=== PATIENT | female | born 1935 | race Caucasian/White ===

== ENCOUNTER 2018-08-31 14:42 | Emergency (ER) | payer OTHER, BC ==
[2018-08-31 14:55] VITALS: TEMP 98.4; BMI 24.9
[2018-08-31] MEDS ORDERED: ACETAMINOPHEN 500 MG TABLET (FP) ONE (15:24)
[2018-08-31] MEDS ORDERED: ACETAMINOPHEN 325 MG TABLET (FP) PO ONE (15:40)
--- NOTE | 2018-08-31 17:10 | PDOC ---
Documentation entered by Joshua Natarajan SCRIBE, acting as scribe for Og Kennedy MD. gO Kennedy MD: This documentation has been prepared by the Delgado johnson Daniel, SCRIBE, under my direction and personally reviewed by me in its entirety. I confirm that the documentation accurately reflects all work, treatment, procedures, and medical decision making performed by me. History of Present Illness - General Chief Complaint: Headache Stated Complaint: HEADACHE History Source: Patient, Family Exam Limitations: No Limitations - History of Present Illness Initial Comments: 08/31/18 17:06 The patient is an 83 year old female with a past medical history of HTN, HLD, COPD, gastric ulcers, suspected colon cancer, and left upper lobe lobectomy here today for evaluation of headache. The patient reports that she has been having an intermittent headache for a couple of weeks. She reports that her headache today started around 8 AM describing it as a pressure on top of her head and a 7/10 in severity. Patients daughter also notes her having mild dizziness. Patient denies vision changes. endorses mild nausea with her shelley Patient denies fever, chills. Denies chest pain, shortness of breath. Denies vomiting, diarrhea, abdominal pain, numbness/tingling/weakness, neck pain. Allergies: sulfa PCP: Bud Angelo Past History - Past Medical History Allergies/Adverse Reactions: Allergies Allergy/AdvReac Type Severity Reaction Status Date / Time Sulfa (Sulfonamide Allergy Verified 08/05/11 23:54 Antibiotics) [Sulfa(Sulfonamide Antibiotics)] Home Medications: Ambulatory Orders Amlodipine Besylate [Norvasc] 2.5 mg PO DAILY 12/17/11 Cholecalciferol (Vitamin D3) [Vitamin D3] 1,000 unit PO DAILY tablet 10/01/14 Aspirin [Aspirin Ec] 81 mg PO ASDIR 03/10/16 C,E,Zinc,Copper 24/Om3/Lut/Rosalio [Ocuvite Softgel] 1 each PO DAILY 11/16/17 Metoprolol Tartrate 50 mg PO HS 11/16/17 Anemia: No Asthma: No Cancer: No Cardiac Disorders: No (HAS HAD RECENT ECHO AND STRESS---NORMAL) CVA: No COPD: Yes (MILD) CHF: No Dementia: No Diabetes: No GI Disorders: Yes (GERD,BLEEDING GASTRIC ULCER OVER 15 YRS AGO) Disorders: No HTN: Yes Hypercholesterolemia: Yes Liver Disease: No Seizures: No Thyroid Disease: No - Surgical History Abdominal Surgery: No Appendectomy: No Cardiac Surgery: No Cholecystectomy: No Lung Surgery: No Neurologic Surgery: No Orthopedic Surgery: No - Immunization History Td Vaccination: No Immunization Up to Date: (UNKNOWN) - Suicide/Smoking/Psychosocial Hx Smoking Status: No Smoking History: Former smoker Have you smoked in the past 12 months: No Number of Cigarettes Smoked Daily: 20 If you are a former smoker, when did you quit?: 2004 Hx Alcohol Use: Yes (RARELY) Drug/Substance Use Hx: No Substance Use Type: Alcohol Hx Substance Use Treatment: No Review of Systems - Review of Systems Able to Perform ROS?: Yes Comments:: 08/31/18 17:06 CONSTITUTIONAL: No reported: Fever, Chills, Diaphoresis, Generalized Weakness, Malaise, Loss of Appetite HEENT: No reported: Rhinorrhea, Nasal Congestion, Throat Pain, Throat Swelling, Difficulty Swallowing, Mouth Swelling, Ear Pain, Eye Pain, Visual Changes CARDIOVASCULAR: No reported: Chest Pain, Syncope, Palpitations, Irregular Heart Rate, Lightheadedness, Peripheral Edema RESPIRATORY: No reported: Cough, Shortness of Breath, SOB with Exertion, Orthopnea, Wheezing , Stridor, Hemoptysis GASTROINTESTINAL: No reported: Abdominal pain, Abdominal Distension, Nausea, Vomiting, Diarrhea, Constipation, Melena, Hematochezia GENITOURINARY: No reported: Dysuria, Frequency, Urgency, Hesitancy, Flank Pain, Genital Pain MUSCULOSKELETAL: No reported: Myalgia, Arthralgia, Joint Swelling, Back pain, Neck Pain SKIN: No reported: Rash, Itching, Pallor HEMEATOLOGIC/IMMUNOLOGIC: No reported: Easy Bleeding, Easy Bruising, Lymphadenopathy, Frequent infections ENDOCRINE: No reported: Unexplained Weight Gain, Unexplained Weight Loss, Heat Intolerance , Cold Intolerance NEUROLOGIC: +headache No reported: Focal Weakness, Paresthesias, Vertigo, Lightheadedness, Unsteady Gait, Seizure, Mental Status Changes, Incontinence PSYCHIATRIC: No reported: Anxiety, Depression *Physical Exam - Vital Signs Last Vital Signs Temp Pulse Resp BP Pulse Ox 98.4 F 78 18 180/97 H 97 08/31/18 14:42 08/31/18 14:42 08/31/18 14:42 08/31/18 14:42 08/31/18 14:42 - Physical Exam Comments: 08/31/18 17:09 GENERAL: The patient is awake, alert, and fully oriented, Nontoxic - in no acute distress. HEAD: Normocephalic, atraumatic. EYES: extraocular movements intact, sclera anicteric, conjunctiva clear. ENT: Normal voice, Moist mucous membranes. NECK: Normal range of motion, supple LUNGS: Breath sounds equal, clear to auscultation bilaterally. No wheezes, no rhonchi, no rales. HEART: Regular rate and rhythm, normal S1 and S2 without murmur, rub or gallop. ABDOMEN: Soft, nontender, No guarding, no rebound. . No CVA tenderness EXTREMITIES: Normal range of motion, no edema. NEUROLOGICAL: No facial assymetry, Normal speech PSYCH: Normal mood, normal affect. SKIN: Warm, Dry, normal turgor, NEURO: Mental status: The patient is oriented x3. Cranial nerves: Cranial nerves II through XII are intact Motor: The upper extremities are 5 over 5 in all muscle groups. The lower extremities are 5 over 5 in all muscle groups. Negative pronator drift Sensation: Sensation is intact to light touch throughout Gait: Normal. Heel and toe walking are normal. Tandem gait is normal. ED Treatment Course - RADIOLOGY Radiology Studies Ordered: Category Date Time Status HEAD CT WITHOUT CONTRAST [CT] Stat CT Scan 08/31/18 15:19 Completed - Medications Given in the ED: ED Medications Discontinued Medications Generic Name Dose Route Start Last Admin Trade Name Freq PRN Reason Stop Dose Admin Acetaminophen 975 mg 08/31/18 15:40 08/31/18 15:30 Tylenol - PO 08/31/18 15:41 975 mg ONCE ONE Administration Medical Decision Making - Medical Decision Making 08/31/18 17:01 83y F hx of htn, hl, copd, suspect colon ca (currently being worked up) presents with complaint o fheadache this mroning that was pressure like associated with nausa, pt endorses recent increase episode of headaches. denies any fever/chills, neck pain, cough, numbness/tingling/weakness, vision changes. on exam pt in [place], well apeparing ct obtained due to increased headaches and colon ca to r/o metastatic ca/mass ct negative pt feelng improved will dc pt with outpatient fu return precautions were discussed I discussed the physical exam findings, ancillary test results and final diagnoses with the patient. I answered all of the patient's questions. The patient was satisfied with the care received and felt comfortable with the discharge plan and treatment plan. The patient will call their primary care physician within 24 hours to arrange follow-up and will return to the Emergency Department with any new, persistent or worsening symptoms. *DC/Admit/Observation/Transfer Diagnosis at time of Disposition: Headache Qualifiers: Headache type: tension-type Headache chronicity pattern: acute headache Intractability: not intractable Qualified Code(s): G44.209 - Tension-type headache, unspecified, not intractable - Discharge Dispostion Disposition: HOME Condition at time of disposition: Improved Decision to Admit order: No - Referrals Referrals: Bud Angelo MD [Primary Care Provider] - - Patient Instructions Printed Discharge Instructions: DI for Hormonal and Tension Headaches Additional Instructions: Return to the emergency department immediately with ANY new, persistent or worsening symptoms including worsening headache, vision changes, numbness/ tingling/weakness, persistent nausea and vomiting or any other concerns. Make sure you are getting adaqute sleep and hydration. You MUST call and follow up with your doctor tomorrow for further evaluation of your symptoms. Your emergency department visit is not complete without a followup with your doctor for reevaluation. Results were discussed with you. Please make sure your doctor reviews the results of your emergency evaluation. Print Language: KAZAKH - Post Discharge Activity
[2018-08-31 17:36] VITALS: BP 170/90; PULSE 77
== END 2018-08-31 17:30 | disposition home or self-care (01) ==
LOC: FER 14:42
DX: G44.209 Tension-type headache, unspecified, not intractable (principal); I10 Essential (primary) hypertension; E78.5 Hyperlipidemia, unspecified; J44.9 Chronic obstructive pulmonary disease, unspecified
CPT/HCPCS: 70450-TC; 99282-25

== ENCOUNTER 2018-12-11 15:21 | Emergency (ER) | payer OTHER, BC ==
--- NOTE | 2018-12-11 15:23 | PDOC ---
History of Present Illness - General Chief Complaint: Pain Stated Complaint: ABDOMINAL PAIN History Source: Patient Exam Limitations: No Limitations - History of Present Illness Initial Comments: 12/11/18 19:40 83 yo F with a hx of lung cancer (s/p upper lobe resection with metastasis to the left colon), left colon cancer (s/p resection), and right colonic poly removal with subsequent perforation treated medically presents to the emergency department with pain in the right lower quadrant that has been ongoing for 1 week. Per the patient, she was discharged 6 weeks ago and has had follow up with her PMD. PMD ordered plain xray films which did not show evidence of obstruction. Patient states she has a known right ovarian cyst. States last BM was "at least 5 days ago" with a loose watery stool episode this past sunday. In addition to the KUB, her WBC showed 14,000. Past History - Past Medical History Allergies/Adverse Reactions: Allergies Allergy/AdvReac Type Severity Reaction Status Date / Time Sulfa (Sulfonamide Allergy Verified 12/11/18 15:28 Antibiotics) [Sulfa(Sulfonamide Antibiotics)] Home Medications: Ambulatory Orders Amlodipine Besylate [Norvasc] 2.5 mg PO DAILY 12/17/11 Cholecalciferol (Vitamin D3) [Vitamin D3] 1,000 unit PO DAILY tablet 10/01/14 Aspirin [Aspirin Ec] 81 mg PO MOFR 03/10/16 C,E,Zinc,Copper 24/Om3/Lut/Rosalio [Ocuvite Softgel] 1 each PO DAILY 11/16/17 Metoprolol Tartrate 50 mg PO HS 11/16/17 Amox-Tr/K Cl [Augmentin - 500Mg Tablet] 1 tab PO BID #14 tab 12/11/18 Docusate Sodium [Colace] 200 mg PO HS 12/11/18 Omeprazole 40 mg PO DAILY 12/11/18 Polyethylene Glycol 3350 [Miralax (For Daily Use) -] 17 gm PO DAILY 12/11/18 Ramipril 5 mg PO DAILY 12/11/18 Simvastatin [Zocor -] 40 mg PO HS 12/11/18 Anemia: No Asthma: No Cancer: No Cardiac Disorders: No (HAS HAD RECENT ECHO AND STRESS---NORMAL) CVA: No COPD: Yes (MILD) CHF: No Dementia: No Diabetes: No GI Disorders: Yes (GERD,BLEEDING GASTRIC ULCER OVER 15 YRS AGO) Disorders: No HTN: Yes Hypercholesterolemia: Yes Liver Disease: No Seizures: No Thyroid Disease: No - Surgical History Abdominal Surgery: No Appendectomy: No Cardiac Surgery: No Cholecystectomy: No Lung Surgery: No Neurologic Surgery: No Orthopedic Surgery: No - Immunization History Td Vaccination: No Immunization Up to Date: (UNKNOWN) - Suicide/Smoking/Psychosocial Hx Smoking Status: No Smoking History: Former smoker Have you smoked in the past 12 months: No Number of Cigarettes Smoked Daily: 20 If you are a former smoker, when did you quit?: 2005 Hx Alcohol Use: Yes (RARELY) Drug/Substance Use Hx: No Substance Use Type: Alcohol Hx Substance Use Treatment: No Review of Systems - Review of Systems Able to Perform ROS?: Yes Is the patient limited Armenian proficient: No Constitutional: No: Chills, Diaphoresis, Fever, Weakness HEENTM: No: Ear Pain, Nose Pain, Throat Pain, Mouth Pain Respiratory: No: Cough, Shortness of Breath, Hemoptysis Cardiac (ROS): No: Chest Pain, Lightheadedness, Palpitations, Syncope ABD/GI: Yes: Constipated, Abdominal cramping. No: Diarrhea, Nausea, Rectal Bleeding, Vomiting, Tarry Stools : No: Burning, Dysuria, Hematuria Musculoskeletal: No: Back Pain, Joint Pain, Neck Pain Integumentary: No: Bruising, Erythema, Rash Neurological: No: Headache, Numbness Psychiatric: No: Change in Appetite Endocrine: No: Unexplained Weight Gain Hematologic/Lymphatic: No: Anemia *Physical Exam - Physical Exam General Appearance: Yes: Nourished, Appropriately Dressed. No: Apparent Distress, Intoxicated HEENT: positive: EOMI, YANELIS, Normal Voice, Symmetrical, Pharynx Normal. negative: Pale Conjunctivae, Scleral Icterus (R), Scleral Icterus (L), Muffled/ Hoarse voice, Pharyngeal Erythema, Tonsillar Exudate, Tonsillar Erythema Neck: positive: Trachea midline, Supple. negative: Tender, Lymphadenopathy (R) , Lymphadenopathy (L), Tender lateral, Tender midline Respiratory/Chest: positive: Lungs Clear, Normal Breath Sounds. negative: Chest Tender, Respiratory Distress, Accessory Muscle Use Cardiovascular: positive: Regular Rhythm, Regular Rate, S1, S2. negative: Systolic Murmur Gastrointestinal/Abdominal: positive: Normal Bowel Sounds, Tender (RLQ), Soft, Distended. negative: Guarding, Rebound Musculoskeletal: positive: Normal Inspection. negative: CVA Tenderness, Vertebral Tenderness Extremity: positive: Normal Capillary Refill, Normal Inspection, Normal Range of Motion. negative: Tender, Swelling, Calf Tenderness Integumentary: positive: Normal Color, Dry, Warm. negative: Swelling, Ecchymosis Neurologic: positive: locum tenens psychiatrist II-XII NML intact, Fully Oriented, Alert, Normal Mood/ Affect ED Treatment Course - LABORATORY CBC & Chemistry Diagram: 12/11/18 16:30 12/11/18 16:30 Medical Decision Making - Medical Decision Making 83 yo F with a hx of lung cancer (s/p upper lobe resection with metastasis to the left colon), left colon cancer (s/p resection), and right colonic poly removal with subsequent perforation treated medically presents to the emergency department with pain in the right lower quadrant that has been ongoing for 1 week. Initial vitals: Initial Vital Signs Temp Pulse Resp BP Pulse Ox 98.3 F 81 18 145/68 99 12/11/18 15:21 12/11/18 15:21 12/11/18 15:21 12/11/18 15:21 12/11/18 15:21 work up:" ddx: colitis vs SBO vs LBO vs UTI vs nephrolithiasis vs ovarian pathology (has hx of large right ovarian cyst). Laboratory Tests 12/11/18 12/11/18 12/11/18 16:30 16:30 16:30 WBC 13.5 H RBC 3.26 L Hgb 10.6 L Hct 31.6 L MCV 96.9 H MCH 32.6 MCHC 33.6 RDW 12.6 Plt Count 418 MPV 7.7 Absolute Neuts (auto) 11.6 Neutrophils % 85.6 H Lymphocytes % 7.1 L Monocytes % 6.8 Eosinophils % 0.2 Basophils % 0.3 Sodium 131 L Potassium 4.1 Chloride 97 L Carbon Dioxide 24 Anion Gap 10 BUN 19.0 H Creatinine 0.9 Est GFR (CKD-EPI)AfAm 68.53 Est GFR (CKD-EPI)NonAf 59.13 Random Glucose 108 H Lactic Acid 1.6 Calcium 9.2 Total Bilirubin 0.7 AST 14 L ALT 9 L Alkaline Phosphatase 87 Troponin I Total Protein 7.1 Albumin 3.5 Urine Color Urine Appearance Urine pH Urine Protein Urine Glucose (UA) Urine Ketones Urine Blood Urine Nitrite Urine Bilirubin Urine Urobilinogen Ur Leukocyte Esterase Urine RBC Urine WBC Ur Transition Epith Cell Urine Bacteria 12/11/18 12/11/18 16:49 18:40 WBC RBC Hgb Hct MCV MCH MCHC RDW Plt Count MPV Absolute Neuts (auto) Neutrophils % Lymphocytes % Monocytes % Eosinophils % Basophils % Sodium Potassium Chloride Carbon Dioxide Anion Gap BUN Creatinine Est GFR (CKD-EPI)AfAm Est GFR (CKD-EPI)NonAf Random Glucose Lactic Acid Calcium Total Bilirubin AST ALT Alkaline Phosphatase Troponin I < 0.03 Total Protein Albumin Urine Color Yellow Urine Appearance Clear Urine pH 5.5 Urine Protein Negative Urine Glucose (UA) Negative Urine Ketones Negative Urine Blood Trace-intact Urine Nitrite Positive H Urine Bilirubin Negative Urine Urobilinogen 0.2 Ur Leukocyte Esterase Trace H Urine RBC 10-20 Urine WBC 20-40 Ur Transition Epith Cell Few Urine Bacteria Many leukocytosis noted. UTI noted on UA Patient's CT abdomen and pelvis reveals large right ovarian cyst measuring 19x20 cm. A pending US at the time of sign out to night team to rule out ovarian torsion. *DC/Admit/Observation/Transfer Diagnosis at time of Disposition: Lower abdominal pain UTI (urinary tract infection) Qualifiers: Urinary tract infection type: site unspecified Hematuria presence: without hematuria Qualified Code(s): N39.0 - Urinary tract infection, site not specified - Discharge Dispostion Disposition: HOME Condition at time of disposition: Stable - Prescriptions Prescriptions: Amox-Tr/K Cl [Augmentin - 500Mg Tablet] 1 tab PO BID #14 tab - Referrals Referrals: Bud Angelo MD [Primary Care Provider] - - Patient Instructions Printed Discharge Instructions: DI for Abdominal Pain-Adult Additional Instructions: Augmentin 500/125 mg twice a day for 1 week(take with a meal) drink plenty of water followup with Dr Angelo and your surgeon at [facility] as discussed return to ER if you have worsening pain/fever/vomiting - Post Discharge Activity
[2018-12-11 15:47] VITALS: BMI 25.1
[2018-12-11] MEDS ORDERED: ACETAMINOPHEN 1000 MG/100 ML VIAL (NON FORMULARY) IVPB ONE (16:06)
[2018-12-11] MEDS ORDERED: ACETAMINOPHEN INJECTION 100 ML IVPB ONE (16:29)
--- NOTE | 2018-12-11 16:40 | PDOC ---
Attending Attestation - Resident Resident Name: RiverRayray - ED Attending Attestation I have performed the following: I have examined & evaluated the patient, The case was reviewed & discussed with the resident, I agree w/resident's findings & plan, Exceptions are as noted - HPI HPI: 12/11/18 16:31 83-year-old female with extensive medical history including left upper lobe lung resection for carcinoma, left colon resection for carcinoma, and right colonic polyp removal, one of which was cancerous, subsequently followed by perforation and extended hospitalization however, she was treated medically and it resolved without surgery. She was discharged following the perforation approximately 6 weeks ago and has been doing well until right mid and lower abdominal pain developed several days ago. She had a 14,000 white count last Sunday, and a KUB film which failed to show obstruction - Physicial Exam PE: 12/11/18 16:33 Physical exam reveals that the patient is afebrile with otherwise normal vital signs. She does not appear to be significantly dehydrated Abdomen is mildly to moderately distended. However, she is known to have a very large ovarian cyst that is untreated. There is moderate localized tenderness in the right lower quadrant and right pelvic region to deep palpation but without guarding or rebound. There is also mild diffuse tenderness throughout the abdomen. 12/14/18 07:14 - Medical Decision Making 12/14/18 07:14 Assessment: Possible complication related to recent surgery, including abscess, recurrent perforation. Also possible is acute diverticulitis, renal colic Plan: Labs, CT, further medical evaluation and treatment depending on results. Patient is now moderately comfortable, nontoxic in appearance. Signed out to Dr. Spence at 7 PM pending lab results and further evaluation.
[2018-12-11 16:51] LABS: BASO % 0.3 % (0-2.0); EOS % 0.2 % (0-4.5); HEMATOCRIT 31.6 % (32.4-45.2); HEMOGLOBIN 10.6 GM/dl (10.7-15.3); LYMPH % 7.1 % (8-40); MCH 32.6 pg (25.7-33.7); MCHC 33.6 g/dl (32.0-36.0); MEAN CELL VOLUME 96.9 fl (80-96); MEAN PLT VOLUME 7.7 fl (7.5-11.1); MONO % 6.8 % (3.8-10.2); NEUT % 85.6 % (42.8-82.8); PLATELET COUNT 418 K/MM3 (134-434); RBC 3.26 M/mm3 (3.60-5.2); RDW 12.6 % (11.6-15.6); WHITE BLOOD COUNT 13.5 K/mm3 (4.0-10.8)
[2018-12-11 16:59] LABS: ALBUMIN 3.5 g/dl (3.4-5.0); BILIRUBIN,TOTAL 0.7 mg/dl (0.2-1); CALCIUM 9.2 mg/dl (8.5-10); CREATININE 0.9 mg/dl (0.55-1.3); POTASSIUM 4.1 mmol/L (3.5-5.1); TOT PROT 7.1 g/dl (6.4-8.2)
[2018-12-11 17:09] VITALS: BP 145/70; PULSE 68; TEMP 98
[2018-12-11 19:10] LABS: EPITHELIAL CELLS FEW /hpf
--- NOTE | 2018-12-11 21:39 | PDOC ---
*Physical Exam - Vital Signs Last Vital Signs Temp Pulse Resp BP Pulse Ox 98.0 F 68 18 145/70 98 12/11/18 17:00 12/11/18 17:00 12/11/18 17:00 12/11/18 17:00 12/11/18 17:00 ED Treatment Course - LABORATORY CBC & Chemistry Diagram: 12/11/18 16:30 12/11/18 16:30 - ADDITIONAL ORDERS Additional order review: Laboratory Results 12/11/18 12/11/18 12/11/18 18:40 16:49 16:30 Sodium Potassium Chloride Carbon Dioxide Anion Gap BUN Creatinine Est GFR (CKD-EPI)AfAm Est GFR (CKD-EPI)NonAf Random Glucose Lactic Acid 1.6 Calcium Total Bilirubin AST ALT Alkaline Phosphatase Troponin I < 0.03 Total Protein Albumin Urine Color Yellow Urine Appearance Clear Urine pH 5.5 Urine Protein Negative Urine Glucose (UA) Negative Urine Ketones Negative Urine Blood Trace-intact Urine Nitrite Positive H Urine Bilirubin Negative Urine Urobilinogen 0.2 Ur Leukocyte Esterase Trace H Urine RBC 10-20 Urine WBC 20-40 Ur Transition Epith Cell Few Urine Bacteria Many 12/11/18 16:30 Sodium 131 L Potassium 4.1 Chloride 97 L Carbon Dioxide 24 Anion Gap 10 BUN 19.0 H Creatinine 0.9 Est GFR (CKD-EPI)AfAm 68.53 Est GFR (CKD-EPI)NonAf 59.13 Random Glucose 108 H Lactic Acid Calcium 9.2 Total Bilirubin 0.7 AST 14 L ALT 9 L Alkaline Phosphatase 87 Troponin I Total Protein 7.1 Albumin 3.5 Urine Color Urine Appearance Urine pH Urine Protein Urine Glucose (UA) Urine Ketones Urine Blood Urine Nitrite Urine Bilirubin Urine Urobilinogen Ur Leukocyte Esterase Urine RBC Urine WBC Ur Transition Epith Cell Urine Bacteria 12/11/18 16:30 RBC 3.26 L MCV 96.9 H MCHC 33.6 RDW 12.6 MPV 7.7 Neutrophils % 85.6 H Lymphocytes % 7.1 L Monocytes % 6.8 Eosinophils % 0.2 Basophils % 0.3 - RADIOLOGY Radiology Studies Ordered: Category Date Time Status PELVIS(OTHER) US [US] Stat Ultrasound 12/11/18 20:34 Completed - Medications Given in the ED: ED Medications Discontinued Medications Generic Name Dose Route Start Last Admin Trade Name Freq PRN Reason Stop Dose Admin Acetaminophen 1,000 mg 12/11/18 16:06 12/11/18 16:32 Ofirmev Injection - IVPB 12/11/18 16:07 1,000 mg ONCE ONE Administration Progress Note - Progress Note Progress Note: Care of this patient received from Dr. Levine. Abdominal/pelvic CT performed (oral and IV contrast): No evidence of acute pathology seen (per interpretation by Dr. Banegas of radiology staff) with no evidence of small bowel obstruction/perforation/abscess. Very large right ovarian cyst 21cm X 19 cm identified. No evidence of other abdominal or pelvic masses. the results of the CT discussed with the patient and her daughter; the very large right ovarian cyst has been present for many years and has been relatively asymptomatic. Since right lower quadrant and right flank pain has been present only recently, acute process involving ovarian such as torsion needed to be ruled out: pelvic US performed. Blood flow seen in both ovaries and torsion ruled out. Urinalysis is highly suggestive of urinary tract infection with positive nitrite /positive LE, red blood cells, white blood cells and many bacteria. Patient states that she has had some urinary tract infections in the past and in fact, her right lower quadrant/right flank pain can sometimes be triggered when she urinates. Empiric treatment of presumed UTI will be started . Urine culture pending. Patient has ALLERGY to sulfa. No other ALLERGIES but has tolerated azithromycin and Augmentin well in the past. The patient was started on Augmentin 500 mg twice a day to be taken with food, pending results of the culture and sensitivity . Patient should return to the ER if she has worsening pain, fever, vomiting. She should follow-up with Dr. Angelo and with her surgeon at [facility]. *DC/Admit/Observation/Transfer Diagnosis at time of Disposition: Lower abdominal pain UTI (urinary tract infection) Qualifiers: Urinary tract infection type: site unspecified Hematuria presence: without hematuria Qualified Code(s): N39.0 - Urinary tract infection, site not specified - Discharge Dispostion Disposition: HOME Condition at time of disposition: Stable - Prescriptions Prescriptions: Amox-Tr/K Cl [Augmentin - 500Mg Tablet] 1 tab PO BID #14 tab - Referrals Referrals: Bud Angelo MD [Primary Care Provider] - - Patient Instructions Printed Discharge Instructions: DI for Abdominal Pain-Adult Additional Instructions: Augmentin 500/125 mg twice a day for 1 week(take with a meal) drink plenty of water followup with Dr Angelo and your surgeon at [facility] as discussed return to ER if you have worsening pain/fever/vomiting - Post Discharge Activity
[2018-12-11] MEDS ORDERED: AMOX TR/POT CLAV 500MG/125MG TABLETS (FP) PO ONE (21:53)
[2018-12-11] MEDS ORDERED: AMOX TR/POT CLAV 500MG/125MG TABLETS (FP) ONE (22:08)
--- NOTE | 2018-12-12 09:18 | PDOC ---
Patient Follow-up (Call Back) - Post ED Follow - Up Condition at time of discharge: Stable Disposition at time of original discharge: HOME - Disposition Additional Instructions/Notes: Pt seen yesterday in ED for R sided abdominal pain, had CT imaging which showed [id number] R sided ovarian cyst, pelvic US with no torsion. 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 Widest AP diameter measures 5cm. The length of the aneurysm is approximately 3.2 cm. Thrombus is identified within the aneurysm." I called Trung to speak with her about the addended findings and recommended she take her mom to the nearest ED immediately for further evaluation, including CTA and emergent vascular surgery evaluation. She reports her mom has had multiple procedures at [facility] and will take her there (they live in [place]). I made myself available to Trung should she have any further questions.
--- NOTE | 2018-12-12 14:09 | EKG ---
Test Reason : Blood Pressure : / mmHG Vent. Rate : 078 BPM Atrial Rate : 078 BPM P-R Int : 158 ms QRS Dur : 078 ms QT Int : 418 ms P-R-T Axes : 045 -17 -05 degrees QTc Int : 476 ms SINUS RHYTHM WITH FREQUENT PREMATURE VENTRICULAR COMPLEXES POSSIBLE ANTERIOR INFARCT , AGE UNDETERMINED T WAVE ABNORMALITY, CONSIDER LATERAL ISCHEMIA ABNORMAL ECG NO PREVIOUS ECGS AVAILABLE Confirmed by CHUCK FLEMING MD ([id number]) on 12/12/2018 2:09:36 PM Referred By: MD PETERSEN Confirmed By:CHUCK FLEMING MD
== END 2018-12-11 22:12 | disposition home or self-care (01) ==
LOC: FER 15:21
PROC: 3E033NZ Introduction of Analgesics, Hypnotics, Sedatives into Peripheral Vein, Percutaneous Approach (ICD-10-PCS; principal; 2018-12-11)
DX: N39.0 Urinary tract infection, site not specified (principal); R10.30 Lower abdominal pain, unspecified; I10 Essential (primary) hypertension; E78.00 Pure hypercholesterolemia, unspecified; K21.9 Gastro-esophageal reflux disease without esophagitis; Z85.038 Personal history of other malignant neoplasm of large intestine; Z85.118 Personal history of other malignant neoplasm of bronchus and lung; Z88.2 Allergy status to sulfonamides; Z79.82 Long term (current) use of aspirin; Z87.891 Personal history of nicotine dependence
CPT/HCPCS: 36415; 74177-TC; 76856-TC; 80053; 81003; 81015; 83605; 84484; 85025; 87086; 93005; 96374; 99284-25; J0131

== ENCOUNTER 2019-03-03 11:47 | Inpatient (IN) | payer OTHER, BC ==
[2019-03-03] MEDS ORDERED: SODIUM CHLORIDE 0.9% 1000 ML INFUS.BAG IV ONE ×2 (12:09→18:19)
--- NOTE | 2019-03-03 12:10 | PDOC ---
History of Present Illness - General Chief Complaint: Pain Stated Complaint: ABD PAIN Time Seen by Provider: 03/03/19 11:50 - History of Present Illness Initial Comments: 03/03/19 12:11 84yo female with hx of lung cancer (s/p upper lobe resection with metastasis to the left colon), left colon cancer (s/p resection), and right colonic poly removal with subsequent perforation treated medically, HTN, COPD with R flank pain. States pain started last sunday. Per the daughter, the patient had chills on sunday night and on was started on Macrobid for a UTI. Since the pain has gotten worse. Last BM was Sunday - used a suppository last night with minimal output and minimal flatus. No nausea or vomiting. No cp/sob. No distension of the abd. Pt denies f/c today. Pt denies cough. No dysuria or hematuria. Pt denies back pain. States decreased PO intake over the weekend- but did tolerate PO, no vomiting. Past History - Past Medical History Allergies/Adverse Reactions: Allergies Allergy/AdvReac Type Severity Reaction Status Date / Time Sulfa (Sulfonamide Allergy Verified 03/03/19 11:47 Antibiotics) [Sulfa(Sulfonamide Antibiotics)] Home Medications: Ambulatory Orders Amlodipine Besylate [Norvasc] 2.5 mg PO DAILY 12/17/11 Cholecalciferol (Vitamin D3) [Vitamin D3] 1,000 unit PO DAILY tablet 10/01/14 Aspirin [Aspirin Ec] 81 mg PO MOFR 03/10/16 C,E,Zinc,Copper 24/Om3/Lut/Rosalio [Ocuvite Softgel] 1 each PO DAILY 11/16/17 Metoprolol Tartrate 50 mg PO HS 11/16/17 Docusate Sodium [Colace] 200 mg PO HS 12/11/18 Omeprazole 40 mg PO DAILY 12/11/18 Polyethylene Glycol 3350 [Miralax (For Daily Use) -] 17 gm PO DAILY 12/11/18 Ramipril 5 mg PO DAILY 12/11/18 Simvastatin [Zocor -] 40 mg PO HS 12/11/18 Acetaminophen [Tylenol -] 1,000 mg PO Q6H 03/03/19 Biotin 1 mg PO DAILY 03/03/19 Cyanocobalamin [Vitamin B12 -] 100 mcg PO DAILY 03/03/19 Loratadine [Claritin] 10 mg PO DAILY 03/03/19 Nitrofurantoin Macrocrystal [Macrodantin] 100 mg PO DAILY 03/03/19 Anemia: No Asthma: No Cancer: No Cardiac Disorders: No (HAS HAD RECENT ECHO AND STRESS---NORMAL) CVA: No COPD: Yes (MILD) CHF: No Dementia: No Diabetes: No GI Disorders: Yes (GERD,BLEEDING GASTRIC ULCER OVER 15 YRS AGO) Disorders: Yes (H/O LARGE RLQ CYST POSSIBLE OVARIAN) HTN: Yes Hypercholesterolemia: Yes Liver Disease: No Seizures: No Thyroid Disease: No Lung CA: Yes - Surgical History Abdominal Surgery: No Appendectomy: No Cardiac Surgery: No Cholecystectomy: No GI Surgery: Yes (MULTIPLE COLON POLYPS RESECTED SEPTEMBER 2018. COMPLICATED BY PERFORATION) Lung Surgery: No Neurologic Surgery: No Orthopedic Surgery: No - Immunization History Td Vaccination: No Immunization Up to Date: (UNKNOWN) - Psycho Social/Smoking Cessation Hx Smoking Status: No Smoking History: Unknown if ever smoked Have you smoked in the past 12 months: No Number of Cigarettes Smoked Daily: 20 If you are a former smoker, when did you quit?: 2004 Hx Alcohol Use: Yes (RARELY) Drug/Substance Use Hx: No Substance Use Type: Alcohol Hx Substance Use Treatment: No Review of Systems - Review of Systems Able to Perform ROS?: Yes Is the patient limited Belarusian proficient: No Constitutional: Yes: Chills. No: Fever HEENTM: No: Nose Pain, Nose Congestion, Throat Pain, Throat Swelling Respiratory: No: Cough, Shortness of Breath Cardiac (ROS): No: Chest Pain ABD/GI: Yes: Constipated, Other (Right flank pain). No: Abdominal Distended, Diarrhea, Nausea, Vomiting : No: Burning, Dysuria, Hematuria, Urgency Musculoskeletal: No: Back Pain Integumentary: No: Rash Neurological: No: Headache, Numbness All Other Systems: Reviewed and Negative *Physical Exam - Vital Signs Last Vital Signs Temp Pulse Resp BP Pulse Ox 98.5 F 85 18 160/71 100 03/03/19 11:47 03/03/19 11:47 03/03/19 11:47 03/03/19 11:47 03/03/19 11:47 - Physical Exam General Appearance: Yes: Nourished, Appropriately Dressed. No: Apparent Distress HEENT: positive: EOMI, Normal Voice Neck: positive: Supple Respiratory/Chest: positive: Lungs Clear, Normal Breath Sounds. negative: Respiratory Distress Cardiovascular: positive: Regular Rhythm, Regular Rate, S1, S2, Edema (trace edema at ankles) Gastrointestinal/Abdominal: positive: Normal Bowel Sounds, Flat, Soft, Tenderness (R flank, R mid abd). negative: Guarding, Rebound Musculoskeletal: negative: CVA Tenderness Integumentary: positive: Normal Color, Dry, Warm. negative: Rash Neurologic: positive: Fully Oriented, Alert, Normal Mood/Affect, Normal Response , Other (ambulated into the ER) ED Treatment Course - LABORATORY CBC & Chemistry Diagram: 03/03/19 12:25 03/03/19 12:25 Medical Decision Making - Medical Decision Making 03/03/19 12:15 a/p: 84yo female with R flank pain -concern for renal colic with infection vs pyelo vs obstruction given hx of colon resection and microperf treated medically -will send labs, po contrast and CT abd/pelvis, ua -will start gentle ivf hydration -pt took tylenol at 8am -declines pain medication at this time -denies nausea -daughter at the bedside -will monitor and reassess 03/03/19 12:46 RLQ cyst on prior ct imaging is well known to the patient and the daughter 03/03/19 13:02 mildly elevated wbc no uti, mild dehydration with ketones in urine 03/03/19 13:[address] pending 03/03/19 17:00 pt with t12 compression fx pt with hydro b/l call placed to Dr. Golden pt and daughter updated large cyst causing hydro 03/03/19 17:[address] Golden who recommends poss IR drainage of the cyst and then if stents are needed will eval case discussed with Peg from [facility] who accepts pt to service and will consult GREEN PROMOTIONS SPECIALIST and IR pt updated and daughter updated pt will be admitted to [facility] Discharge - Discharge Information Problems reviewed: Yes Clinical Impression/Diagnosis: Pelvic cyst, Lower abdominal pain, Hydroureter, T12 compression fracture Condition: Fair - Admission Yes - Follow up/Referral Referrals: Bud Angelo MD [Primary Care Provider] - - Patient Discharge Instructions - Post Discharge Activity
[2019-03-03 12:54] LABS: BASO % 0.6 % (0-2.0); EOS % 0.6 % (0-4.5); HEMATOCRIT 32.4 % (32.4-45.2); HEMOGLOBIN 10.7 GM/dl (10.7-15.3); LYMPH % 8.3 % (8-40); MCH 31.3 pg (25.7-33.7); MEAN CELL VOLUME 94.8 fl (80-96); MEAN PLT VOLUME 7.7 fl (7.5-11.1); MONO % 7.1 % (3.8-10.2); NEUT % 83.4 % (42.8-82.8); PLATELET COUNT 516 K/MM3 (134-434); RBC 3.42 M/mm3 (3.60-5.2); RDW 13.8 % (11.6-15.6); WHITE BLOOD COUNT 12.4 K/mm3 (4.0-10.8)
[2019-03-03 12:58] LABS: INR 1.18 (0.82-1.09); PROTHROMBIN TIME (PATIENT) 13.2 SEC (10.2-13.0)
[2019-03-03 13:03] LABS: ALBUMIN 3.6 g/dl (3.4-5.0); BILIRUBIN,TOTAL 0.6 mg/dl (0.2-1); CALCIUM 9.2 mg/dl (8.5-10); CREATININE 0.9 mg/dl (0.55-1.3); POTASSIUM 4.4 mmol/L (3.5-5.1); TOT PROT 7.2 g/dl (6.4-8.2)
--- NOTE | 2019-03-03 17:38 | HP ---
CHIEF COMPLAINT: Right flank and abdominal pain PCP: Dr. Angelo HISTORY OF PRESENT ILLNESS: 84 year-old female with a complicated medical history significant for HTN, HLD, COPD, and PUD. In October 2017, patient was diagnosed with a lung mass. 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 Patient underwent colonoscopy 10/2017 and a sigmoid polyp was positive for a moderately differentiated adenocarcinoma. In 12/2017 patient underwent a DAYSI lung resection/VATS. In September 2018, she underwent endoscopic submucosal dissection with multiple polyps removed. Post-procedure course was complicated by bowel perforation with pneumoperitoneum which resulted in a lengthy hospitalization. 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 Patient presents to the ED with right flank and lower abdominal pain x 6 days. According to the patient's daughter (RN) the pain started last Sunday, the patient had chills on Sunday, and she was started on Macrobid on for a presumed UTI even though she had no symptoms of dysuria, frequency, urgency, or hematuria. The pain, however, has became progressively worse over the past 4 days to the point where patient could no longer tolerate. Last BM was 3 days ago. Denies nausea, vomiting, diarrhea, constipation. Denies fever, sweats, chills. 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) [facility]) [facility] Right toe amputation Social History: , lives alone, 5 involved children Smoking: quit 2004, smoked >40 years Alcohol: occasional Drugs: no Family history: father ME @ 70; mother 63 HTN, stroke?; sister heart issues; sister cancer (ovarian?) Allergies Sulfa (Sulfonamide Antibiotics) [Sulfa(Sulfonamide Antibiotics)] Allergy ( Verified 03/03/19 11:47) HOME MEDICATIONS: Home Medications Medication Instructions Recorded Amlodipine Besylate [Norvasc] 2.5 mg PO DAILY 12/17/11 Cholecalciferol (Vitamin D3) 1,000 unit PO DAILY tablet 10/01/14 [Vitamin D3] Aspirin [Aspirin Ec] 81 mg PO MOFR 03/10/16 C,E,Zinc,Copper 24/Om3/Lut/Rosalio 1 each PO DAILY 11/16/17 [Ocuvite Softgel] Metoprolol Tartrate 50 mg PO HS 11/16/17 Docusate Sodium [Colace] 200 mg PO HS 12/11/18 Omeprazole 40 mg PO DAILY 12/11/18 Polyethylene Glycol 3350 [Miralax 17 gm PO DAILY 12/11/18 (For Daily Use) -] Ramipril 5 mg PO DAILY 12/11/18 Simvastatin [Zocor -] 40 mg PO HS 12/11/18 Acetaminophen [Tylenol -] 1,000 mg PO Q6H 03/03/19 Biotin 1 mg PO DAILY 03/03/19 Cyanocobalamin [Vitamin B12 -] 100 mcg PO DAILY 03/03/19 Loratadine [Claritin] 10 mg PO DAILY 03/03/19 Nitrofurantoin Macrocrystal 100 mg PO DAILY 03/03/19 [Macrodantin] REVIEW OF SYSTEMS CONSTITUTIONAL: Absent: fever, chills, diaphoresis, generalized weakness, malaise, loss of appetite, weight change HEENT: Absent: rhinorrhea, nasal congestion, throat pain, throat swelling, difficulty swallowing, mouth swelling, ear pain, eye pain, visual changes CARDIOVASCULAR: Absent: chest pain, syncope, palpitations, irregular heart rate, lightheadedness , peripheral edema RESPIRATORY: Absent: cough, shortness of breath, dyspnea with exertion, orthopnea, wheezing, stridor, hemoptysis GASTROINTESTINAL: Absent: abdominal pain, abdominal distension, nausea, vomiting, diarrhea, constipation, melena, hematochezia GENITOURINARY: +lower abdominal, suprapubic pain Absent: dysuria, frequency, urgency, hesitancy, hematuria, flank pain, genital pain MUSCULOSKELETAL: Absent: myalgia, arthralgia, joint swelling, back pain, neck pain SKIN: Absent: rash, itching, pallor HEMATOLOGIC/IMMUNOLOGIC: Absent: easy bleeding, easy bruising, lymphadenopathy, frequent infections ENDOCRINE: Absent: unexplained weight gain, unexplained weight loss, heat intolerance, cold intolerance NEUROLOGIC: Absent: headache, focal weakness or paresthesias, dizziness, unsteady gait, seizure, mental status changes, bladder or bowel incontinence PSYCHIATRIC: Absent: anxiety, depression, suicidal or homicidal ideation, hallucinations. PHYSICAL EXAMINATION Vital Signs - 24 hr 03/03/19 03/03/19 11:47 16:45 Temperature 98.5 F 97.8 F Pulse Rate 85 Pulse Rate [ 79 Left Apical] Respiratory 18 16 Rate Blood Pressure 160/71 Blood Pressure 150/71 [Right Arm] O2 Sat by Pulse 100 98 Oximetry (%) GENERAL: Awake, alert, and fully oriented, in no acute distress. HEAD: Normal with no signs of trauma. EYES: Pupils equal, round and reactive to light, extraocular movements intact, sclera anicteric, conjunctiva clear. LUNGS: Breath sounds equal, clear to auscultation bilaterally. No wheezes, and no crackles. No accessory muscle use. HEART: Regular rate and rhythm, normal S1 and S2 . ABDOMEN: Diffuse lower abdominal pain, more focal over suprapubic area, no distension, hypoactive bowel sounds MUSCULOSKELETAL: Normal range of motion at all joints. No bony deformities or tenderness. No CVA tenderness. UPPER EXTREMITIES: 2+ pulses, warm, well-perfused. No cyanosis. No clubbing. No peripheral edema. LOWER EXTREMITIES: 2+ pulses, warm, well-perfused. No calf tenderness. No peripheral edema. NEUROLOGICAL: Cranial nerves II-XII intact. Normal speech. Laboratory Results - last 24 hr 03/03/19 03/03/19 03/03/19 12:25 12:25 12:25 WBC RBC Hgb Hct MCV MCH MCHC RDW Plt Count MPV Absolute Neuts (auto) Neutrophils % Lymphocytes % Monocytes % Eosinophils % Basophils % PT with INR INR PTT (Actin FS) 30.7 Sodium 133 L Potassium 4.4 Chloride 98 Carbon Dioxide 23 Anion Gap 12 BUN 17.0 Creatinine 0.9 Est GFR (CKD-EPI)AfAm 68.05 Est GFR (CKD-EPI)NonAf 58.71 Random Glucose 105 Lactic Acid Calcium 9.2 Total Bilirubin 0.6 AST 16 ALT 11 L Alkaline Phosphatase 111 Creatine Kinase 23 L Troponin I < 0.03 Total Protein 7.2 Albumin 3.6 Lipase Urine Color Urine Appearance Urine pH Urine Protein Urine Glucose (UA) Urine Ketones Urine Blood Urine Nitrite Urine Bilirubin Urine Urobilinogen Ur Leukocyte Esterase 03/03/19 03/03/19 03/03/19 12:25 12:25 12:25 WBC 12.4 H RBC 3.42 L Hgb 10.7 Hct 32.4 MCV 94.8 MCH 31.3 MCHC 33.0 RDW 13.8 Plt Count 516 H MPV 7.7 Absolute Neuts (auto) 10.2 Neutrophils % 83.4 H Lymphocytes % 8.3 Monocytes % 7.1 Eosinophils % 0.6 Basophils % 0.6 PT with INR INR PTT (Actin FS) Sodium Potassium Chloride Carbon Dioxide Anion Gap BUN Creatinine Est GFR (CKD-EPI)AfAm Est GFR (CKD-EPI)NonAf Random Glucose Lactic Acid 1.9 Calcium Total Bilirubin AST ALT Alkaline Phosphatase Creatine Kinase Troponin I Total Protein Albumin Lipase 216 Urine Color Urine Appearance Urine pH Urine Protein Urine Glucose (UA) Urine Ketones Urine Blood Urine Nitrite Urine Bilirubin Urine Urobilinogen Ur Leukocyte Esterase 03/03/19 03/03/19 12:25 12:25 WBC RBC Hgb Hct MCV MCH MCHC RDW Plt Count MPV Absolute Neuts (auto) Neutrophils % Lymphocytes % Monocytes % Eosinophils % Basophils % PT with INR 13.2 H INR 1.18 PTT (Actin FS) Sodium Potassium Chloride Carbon Dioxide Anion Gap BUN Creatinine Est GFR (CKD-EPI)AfAm Est GFR (CKD-EPI)NonAf Random Glucose Lactic Acid Calcium Total Bilirubin AST ALT Alkaline Phosphatase Creatine Kinase Troponin I Total Protein Albumin Lipase Urine Color Yellow Urine Appearance Clear Urine pH 5.5 Urine Protein Negative Urine Glucose (UA) Negative Urine Ketones 1+ H Urine Blood Negative Urine Nitrite Negative Urine Bilirubin Negative Urine Urobilinogen 0.2 Ur Leukocyte Esterase Negative ASSESSMENT/PLAN 84 year-old female with a complicated medical history significant for HTN, HLD, COPD, PUD, lung cancer s/p DAYSI resection, sigmoid colon adenocarcinoma, very large right ovarian cystadenoma, and a 5cm infrarenal abdominal aortic aneurysm. Admitted for right flank and lower abdominal pain. Right flank pain Large right ovarian cyst --03/03 CTAP: 18 x 18 x 10cm pelvic mass seen on multiple previous scans since 10/2017 --mass effect on upper 1/3 sigmoid colon and on both ureters, also seen on previous studies --SLAB LIFTING ENGINEER consult placed --IR consult placed Bilateral hydroureteronephrosis --secondary to mass effect of ovarian cyst --renal function is stable --urology consult: suggests perc drainage of cyst Leukocytosis --has been on Macrobid x 4 days for UTI; UA today is negative; will treat for one more day and stop Lung cancer Sigmoid colon adenocarcinoma --both treated surgically, no chemo, no radiation Infrarenal aortic dilitation with mural thrombus --also seen on previous studies since 10/2017, stable in size Dilated common bile duct --seen on previous studies T12 compression fracture --new, interval development --no bony retropulsion --daughter does not want ortho workup at this time Hypertension --BP stable --continue ramipril, ToprolXL Hyperlipidemia --not on statin therapy COPD --continue Spiriva Peptic ulcer disease --stable FEN Fluids: PO intake adequate Electrolytes: replete as indicated Nutrition: regular diet; NPO after midnight DVT prophylaxis: SCDs, oob, ambulation; hold chemical prophylaxis. Full code. Visit type - Emergency Visit Emergency Visit: Yes ED Registration Date: 03/03/19 Care time: The patient presented to the Emergency Department on the above date and was hospitalized for further evaluation of their emergent condition. - New Patient This patient is new to me today: Yes Date on this admission: 03/04/19 - Critical Care Critical Care patient: No
[2019-03-03] MEDS ORDERED: ACETAMINOPHEN 1000 MG/100 ML VIAL (NON FORMULARY) IVPB PRN (18:17)
[2019-03-03 19:05] VITALS: BMI 23.6
[2019-03-03] MEDS: ATORVASTATIN CA 20 MG TABLET (FP) PO SCH (21:49)
[2019-03-03] MEDS: DOCUSATE SODIUM 100 MG CAPSULE (FP) PO SCH (21:49)
[2019-03-04] MEDS ORDERED: DEXTROSE 5%-NORMAL SALINE 1,000 ML IV SCH (00:01)
--- NOTE | 2019-03-04 00:05 | CON.GU ---
Consult Consult Specialty:: Referred by:: ED Reason for Consultation:: hydronephrosis - History of Present Illness Chief Complaint: hydronephrosis History of Present Illness: 84 year old female with renal colic. 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 Creatinine and GFR are normal - History Source History Provided By: Patient, Medical Record - Past Medical History Reproductive: Yes: Other - Alcohol/Substance Use Hx Alcohol Use: Yes (RARELY) - Smoking History Smoking history: Former smoker Have you smoked in the past 12 months: No Aproximately how many cigarettes per day: 20 If you are a former smoker, when did you quit?: 2004 Home Medications - Allergies Allergies/Adverse Reactions: Allergies Allergy/AdvReac Type Severity Reaction Status Date / Time Sulfa (Sulfonamide Allergy Verified 03/03/19 11:47 Antibiotics) [Sulfa(Sulfonamide Antibiotics)] - Home Medications Home Medications: Ambulatory Orders Amlodipine Besylate [Norvasc] 2.5 mg PO DAILY 12/17/11 Cholecalciferol (Vitamin D3) [Vitamin D3] 1,000 unit PO DAILY tablet 10/01/14 Aspirin [Aspirin Ec] 81 mg PO MOFR 03/10/16 C,E,Zinc,Copper 24/Om3/Lut/Rosalio [Ocuvite Softgel] 1 each PO DAILY 11/16/17 Metoprolol Tartrate 50 mg PO HS 11/16/17 Docusate Sodium [Colace] 200 mg PO HS 12/11/18 Omeprazole 40 mg PO DAILY 12/11/18 Polyethylene Glycol 3350 [Miralax (For Daily Use) -] 17 gm PO DAILY PRN Ramipril 5 mg PO DAILY 12/11/18 Simvastatin [Zocor -] 40 mg PO HS 12/11/18 Acetaminophen [Tylenol -] 1,000 mg PO Q6H 03/03/19 Biotin 1 mg PO DAILY 03/03/19 Cyanocobalamin [Vitamin B12 -] 100 mcg PO DAILY 03/03/19 Loratadine [Claritin] 10 mg PO DAILY 03/03/19 Nitrofurantoin Macrocrystal [Macrodantin] 100 mg PO DAILY 03/03/19 Review of Systems - Review of Systems Genitourinary: reports: Flank Pain Physical Exam- Vital Signs: Vital Signs Temperature 98.6 F 03/03/19 22:55 Pulse Rate 80 03/03/19 22:55 Respiratory Rate 18 03/03/19 22:55 Blood Pressure 121/46 L 03/03/19 22:55 O2 Sat by Pulse Oximetry (%) 95 03/03/19 22:55 Labs: CBC, BMP 03/03/19 12:25 03/03/19 12:25 Problem List - Problems (1) Hydronephrosis Assessment/Plan: external bilateral compression from 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 Recommend percutaneous drainage of cyst Code(s): N13.30 - UNSPECIFIED HYDRONEPHROSIS
[2019-03-04] MEDS: NITROFURANTOIN MACROCRYSTAL 50 MG CAPSULE (FP) PO SCH ×4 (00:06→17:18)
[2019-03-04] MEDS ORDERED: oxyCODONE HCL 5 MG TABLET PO PRN (07:24)
[2019-03-04] MEDS: oxyCODONE HCL 5 MG TABLET PO PRN ×3 (07:49→22:56)
--- NOTE | 2019-03-04 08:08 | PN ---
Physical Exam: SUBJECTIVE: Patient seen and examined at bedside together with Dr. Barrett. OBJECTIVE: Vital Signs Period Temp Pulse Resp BP Sys/Barraza Pulse Ox Last 24 Hr 97.8 F-98.6 F 69-85 16-18 113-160/46-71 94-100 GENERAL: Awake, alert, and fully oriented, in no acute distress. HEAD: Normal with no signs of trauma. EYES: Pupils equal, round and reactive to light, extraocular movements intact, sclera anicteric, conjunctiva clear. LUNGS: Breath sounds equal, clear to auscultation bilaterally. No wheezes, and no crackles. No accessory muscle use. HEART: Regular rate and rhythm, normal S1 and S2 . ABDOMEN: Diffuse lower abdominal tenderness MUSCULOSKELETAL: Normal range of motion at all joints. No bony deformities or tenderness. No CVA tenderness. UPPER EXTREMITIES: 2+ pulses, warm, well-perfused. No cyanosis. No clubbing. No peripheral edema. LOWER EXTREMITIES: 2+ pulses, warm, well-perfused. No calf tenderness. No peripheral edema. NEUROLOGICAL: Cranial nerves II-XII intact. Normal speech. Laboratory Results - last 24 hr 03/03/19 03/03/19 03/03/19 12:25 12:25 12:25 WBC RBC Hgb Hct MCV MCH MCHC RDW Plt Count MPV Absolute Neuts (auto) Neutrophils % Lymphocytes % Monocytes % Eosinophils % Basophils % PT with INR INR PTT (Actin FS) 30.7 Sodium 133 L Potassium 4.4 Chloride 98 Carbon Dioxide 23 Anion Gap 12 BUN 17.0 Creatinine 0.9 Est GFR (CKD-EPI)AfAm 68.05 Est GFR (CKD-EPI)NonAf 58.71 Random Glucose 105 Lactic Acid Calcium 9.2 Total Bilirubin 0.6 AST 16 ALT 11 L Alkaline Phosphatase 111 Creatine Kinase 23 L Troponin I < 0.03 Total Protein 7.2 Albumin 3.6 Lipase Urine Color Urine Appearance Urine pH Urine Protein Urine Glucose (UA) Urine Ketones Urine Blood Urine Nitrite Urine Bilirubin Urine Urobilinogen Ur Leukocyte Esterase Blood Type Antibody Screen 03/03/19 03/03/19 03/03/19 12:25 12:25 12:25 WBC 12.4 H RBC 3.42 L Hgb 10.7 Hct 32.4 MCV 94.8 MCH 31.3 MCHC 33.0 RDW 13.8 Plt Count 516 H MPV 7.7 Absolute Neuts (auto) 10.2 Neutrophils % 83.4 H Lymphocytes % 8.3 Monocytes % 7.1 Eosinophils % 0.6 Basophils % 0.6 PT with INR INR PTT (Actin FS) Sodium Potassium Chloride Carbon Dioxide Anion Gap BUN Creatinine Est GFR (CKD-EPI)AfAm Est GFR (CKD-EPI)NonAf Random Glucose Lactic Acid 1.9 Calcium Total Bilirubin AST ALT Alkaline Phosphatase Creatine Kinase Troponin I Total Protein Albumin Lipase 216 Urine Color Urine Appearance Urine pH Urine Protein Urine Glucose (UA) Urine Ketones Urine Blood Urine Nitrite Urine Bilirubin Urine Urobilinogen Ur Leukocyte Esterase Blood Type Antibody Screen 03/03/19 03/03/19 03/03/19 12:25 12:25 21:30 WBC RBC Hgb Hct MCV MCH MCHC RDW Plt Count MPV Absolute Neuts (auto) Neutrophils % Lymphocytes % Monocytes % Eosinophils % Basophils % PT with INR 13.2 H INR 1.18 PTT (Actin FS) Sodium Potassium Chloride Carbon Dioxide Anion Gap BUN Creatinine Est GFR (CKD-EPI)AfAm Est GFR (CKD-EPI)NonAf Random Glucose Lactic Acid Calcium Total Bilirubin AST ALT Alkaline Phosphatase Creatine Kinase Troponin I Total Protein Albumin Lipase Urine Color Yellow Urine Appearance Clear Urine pH 5.5 Urine Protein Negative Urine Glucose (UA) Negative Urine Ketones 1+ H Urine Blood Negative Urine Nitrite Negative Urine Bilirubin Negative Urine Urobilinogen 0.2 Ur Leukocyte Esterase Negative Blood Type O NEGATIVE Antibody Screen Negative Active Medications Generic Name Dose Route Start Last Admin Trade Name Freq PRN Reason Stop Dose Admin Acetaminophen 1,000 mg 03/04/19 07:39 Ofirmev Injection - IVPB Q6H PRN PAIN LEVEL 1-5 Amlodipine Besylate 2.5 mg 03/04/19 10:00 Norvasc - PO DAILY MONET Atorvastatin Calcium 20 mg 03/03/19 22:00 03/03/19 21:49 Lipitor - PO 20 mg HS MONET Administration Docusate Sodium 200 mg 03/03/19 22:00 03/03/19 21:49 Colace - PO 200 mg HS MONET Administration Dextrose/Sodium Chloride 1,000 mls @ 75 mls/hr 03/04/19 00:01 03/04/19 00:06 D5-Ns - IV 75 mls/hr ASDIR MONET Administration Loratadine 10 mg 03/04/19 10:00 Claritin - PO DAILY MONET Metoprolol Succinate 50 mg 12/09/19 22:00 03/03/19 21:49 Toprol Xl - PO 50 mg HS MONET Administration Nitrofurantoin Macrocrystals 50 mg 03/04/19 00:00 03/04/19 06:45 Macrodantin - PO 03/04/19 18:01 50 mg Q6HPO MONET Administration Oxycodone HCl 5 mg 03/04/19 07:40 03/04/19 07:49 Roxicodone - PO 5 mg Q6H PRN Administration PAIN LEVEL 6-10 Pantoprazole Sodium 40 mg 03/04/19 10:00 Protonix - PO DAILY MONET Ramipril 5 mg 03/04/19 10:00 Altace - PO DAILY MONET Tiotropium [place] 2 puff 03/04/19 10:00 Spiriva Respimat IH DAILY MONET ASSESSMENT/PLAN: 84 year-old female with a complicated medical history significant for HTN, HLD, COPD, PUD, lung cancer s/p DAYSI resection, sigmoid colon adenocarcinoma, very large right ovarian cystadenoma, and a 5cm infrarenal abdominal aortic aneurysm. Admitted for right flank and lower abdominal pain. Right flank pain Large right ovarian cyst --03/03 CTAP: 18 x 18 x 10cm pelvic mass seen on multiple previous scans since 10/2017 --mass effect on upper 1/3 sigmoid colon and on both ureters, also seen on previous studies --WARM IN WORKER consult: extensive discussion with patient and daughter (RN) and agree to proceed tomorrow with laparascopic procedure Bilateral hydroureteronephrosis --secondary to mass effect of ovarian cyst --renal function is stable --urology consult: suggests perc drainage of cyst Leukocytosis --completed 5-day course of Macrobid today for presumed UTI Lung cancer Sigmoid colon adenocarcinoma --both treated surgically, no chemo, no radiation Infrarenal aortic dilitation with mural thrombus --also seen on previous studies since 10/2017, stable in size Dilated common bile duct --seen on previous studies T12 compression fracture --new, interval development --no bony retropulsion --daughter does not want ortho workup at this time Hypertension --BP stable --continue ramipril, ToprolXL Hyperlipidemia --not on statin therapy COPD --continue Spiriva Peptic ulcer disease --stable FEN Fluids: PO intake adequate Electrolytes: replete as indicated Nutrition: regular diet; NPO after midnight DVT prophylaxis: SCDs, oob, ambulation; hold chemical prophylaxis. Dispo: This is an 84 year-old woman with no significant cardiac issues. She has hypertension which is well-controlled on current medications, including beta reena, and hyperlipidemia which is treated with diet. She had an unremarkable cardiac stress test in 2017, and since that time has undergone lung surgery and two GI procedures and has had no known problems with anesthesia. EKG, CXR, and laboratory findings have been reviewed. The relative risks of the planned procedure is outweighed by the relative benefit. Patient is a full code. Visit type - Emergency Visit Emergency Visit: Yes ED Registration Date: 03/03/19 Care time: The patient presented to the Emergency Department on the above date and was hospitalized for further evaluation of their emergent condition. - New Patient This patient is new to me today: No - Critical Care Critical Care patient: No
[2019-03-04 08:10] LABS: BASO % 0.6 % (0-2.0); EOS % 1.3 % (0-4.5); HEMATOCRIT 27.5 % (32.4-45.2); HEMOGLOBIN 9.1 GM/dl (10.7-15.3); LYMPH % 9.5 % (8-40); MCH 31.6 pg (25.7-33.7); MCHC 33.2 g/dl (32.0-36.0); MEAN CELL VOLUME 95.2 fl (80-96); MEAN PLT VOLUME 7.6 fl (7.5-11.1); MONO % 9.4 % (3.8-10.2); NEUT % 79.2 % (42.8-82.8); PLATELET COUNT 415 K/MM3 (134-434); RBC 2.89 M/mm3 (3.60-5.2); RDW 13.6 % (11.6-15.6); WHITE BLOOD COUNT 9.2 K/mm3 (4.0-10.8)
[2019-03-04 09:06] LABS: ALBUMIN 2.9 g/dl (3.4-5.0); BILIRUBIN,TOTAL 0.5 mg/dl (0.2-1); CALCIUM 8.5 mg/dl (8.5-10); CREATININE 0.9 mg/dl (0.55-1.3); MAGNESIUM 1.7 mg/dL (1.8-2.4); PHOSPHOROUS 2.8 mg/dl (2.5-4.9); POTASSIUM 4.9 mmol/L (3.5-5.1); TOT PROT 6.2 g/dl (6.4-8.2)
--- NOTE | 2019-03-04 09:07 | EKG ---
Test Reason : Blood Pressure : / mmHG Vent. Rate : 082 BPM Atrial Rate : 082 BPM P-R Int : 150 ms QRS Dur : 080 ms QT Int : 396 ms P-R-T Axes : 069 -16 002 degrees QTc Int : 462 ms NORMAL SINUS RHYTHM NONSPECIFIC ST AND T WAVE ABNORMALITY ABNORMAL ECG WHEN COMPARED WITH ECG OF 11-DEC-2018 16:39, PREMATURE VENTRICULAR COMPLEXES ARE NO LONGER PRESENT NONSPECIFIC T WAVE ABNORMALITY NOW EVIDENT IN LATERAL LEADS Confirmed by Malcom Leroy MD ([id number]) on 03/04/2019 9:07:30 AM Referred By: Confirmed By:Malcom Leroy MD
[2019-03-04] MEDS ORDERED: PT OWN MED DRAWER 7, Y5N ONE (09:14)
[2019-03-04] MEDS: PANTOPRAZOLE 40 MG TABLET (FP) PO SCH (09:17)
[2019-03-04] MEDS: RAMIPRIL 5 MG CAPSULE (FP) PO SCH (09:17)
[2019-03-04] MEDS: amLODIPine BESYLATE 2.5 MG TABLET (FP) PO SCH (09:17)
[2019-03-04] MEDS: LORATADINE 10 MG TABLET PO SCH (09:18)
[2019-03-04] MEDS ORDERED: NITROFURANTOIN MACROCRYSTAL 100 MG PO SCH (10:00)
[2019-03-04] MEDS: TIOTROPIUM BROMIDE 2.5 MCG (SPIRIVA) RESPIMAT INHALER IH SCH (10:27)
[2019-03-04] MEDS: ACETAMINOPHEN 1000 MG/100 ML VIAL (NON FORMULARY) IVPB PRN (15:56)
[2019-03-04] MEDS ORDERED: MAGNESIUM SULF 50% (8.12 MEQ/2 ML-1 GM VIAL) IVPB ONE (19:41)
[2019-03-04] MEDS ORDERED: LACTATED RINGERS SOLUTION 1,000 ML/1,000 ML INFUS.BAG IV SCH (19:45)
[2019-03-04] MEDS: ATORVASTATIN CA 20 MG TABLET (FP) PO SCH (21:53)
[2019-03-04] MEDS: DOCUSATE SODIUM 100 MG CAPSULE (FP) PO SCH (21:53)
[2019-03-04] MEDS ORDERED: BISACODYL 5 MG TABLET.DR (FP) PO ONE (22:00)
[2019-03-05] MEDS ORDERED: DEXTROSE 5%-NORMAL SALINE 1,000 ML IV SCH (00:01)
[2019-03-05] MEDS ORDERED: LACTATED RINGERS SOLUTION 1,000 ML/1,000 ML INFUS.BAG IV SCH ×2 (00:01→18:33)
--- NOTE | 2019-03-05 00:49 | CONS ---
DATE OF CONSULTATION: DATE OF DICTATION: 03/04/2019 GYNECOLOGICAL CONSULTATION CHIEF COMPLAINT: Large right ovarian cyst. REQUESTING PHYSICIAN: Shahana Solares N.P. HISTORY OF PRESENT ILLNESS: The patient is an 84-year-old white female who has been healthy most of her life until about 2 years ago. In the relatively short time, patient developed high blood pressure, COPD, and peptic ulcer disease. Last year, she was diagnosed with lung mass that proved to be primary lung carcinoma. Multiple were also diagnosed. 22 cm right ovarian cyst was picked up incidentally. Patient had not been seen by general car supervisor yard for a long time. Patient underwent resection of the left upper lobe and subsequently colonoscopy, which proved second primary of moderately differentiated adenocarcinoma in the sigmoid. Patient then underwent submucosal dissection with multiple polyps, which was complicated with perforation. Pneumoperitoneum and long hospitalization. She was treated, diagnosed, and operated upon at [facility]. Large ovarian cyst was noted, dealt with. For the last few days, patient has been admitted [facility] at [facility]. She is in a great deal of pain. Patient initially nausea, vomiting, diarrhea, and constipation. She was consulted by urologist because of hydronephrosis. This was deemed to be a result of large cyst pressing on the ureter. PAST MEDICAL HISTORY: Hypertension. Hyperlipidemia. COPD. Peptic ulcer disease. Aortic aneurysm that is about 5 cm now. Lung cancer. Colon cancer. Minor issues otherwise. PAST GYNECOLOGICAL HISTORY: Patient is para 4 with 4 vaginal deliveries for 5 children. Menopausal for some 30 years. ALLERGIES: SULFA. MEDICATION: Amlodipine, omeprazole, ramipril, simvastatin, and currently nitrofurantoin, also various vitamins and supplements. REVIEW OF SYSTEMS: Other than above, no constitutional, head and neck, cardiovascular, respiratory, gastrointestinal, musculoskeletal, dermatological hematological, endocrinological, neurological, or psychiatric problems. PHYSICAL EXAMINATION: General: Patient is pleasant, bright, spirited, white female, alert and oriented, looking younger than her chronological age. Vital signs: Stable. A general physical was performed by Ms. Solares and is available in discharge. It is unremarkable. Abdomen: Soft, a little protruding in the lower segments. No tenderness on palpation. No rebound. Cystic mass seems to be filling the pelvis. Pelvic: Examination done. External genitalia, vulva, vaginal within normal limits. Cervix closed. Uterus is suspended high, most likely by being pulled up by the large cyst. The bottom part of the cyst is palpable. Patient seems to be at that moment only moderately tender. IMPRESSION: 1. Pelvic pain, right flank pain. 2. Large right ovarian cyst. 3. Hydronephrosis secondary to the pressure from the cyst. 4. History of lung and colon cancer. 5. Other medical comorbidity. LABORATORY: Lab work reviewed. There is mild leukocytosis. Patient is on . Sonogram and CAT scan reviewed. The cyst is really large, approximately 10 to 20 cm. It seems to be unilocular, without excrescences. CA125 is pending. There is a good possibility that the cyst is benign cyst adenoma or possibly borderline malignant. Discussed at length with her provider as well as with her daughter, who is an RN at [facility]. I strongly will recommend percutaneous drainage of the cyst for the relief of the symptoms. It would provide diagnosis as well this procedure would be relatively easy, since patient is very thin and the cyst is pressing against abdominal wall. Patient is referred to interventional radiology. Thank you very much for allowing me to see this victorina and very interesting patient. SIRISHA ANDINO MD [id number]
[2019-03-05] MEDS: ACETAMINOPHEN 1000 MG/100 ML VIAL (NON FORMULARY) IVPB PRN ×2 (01:48→09:11)
[2019-03-05 08:06] LABS: CARCINOEMBRYONIC ANTIGEN 2.7 ng/mL (0.0-4.7)
[2019-03-05 08:23] LABS: ACTIVATED PTT 29.5 SECONDS (25.2-36.5)
[2019-03-05 08:27] LABS: INR 1.17 (0.82-1.09); PROTHROMBIN TIME (PATIENT) 13.1 SEC (10.2-13.0)
[2019-03-05 08:29] LABS: ALBUMIN 2.8 g/dl (3.4-5.0); BILIRUBIN,TOTAL 0.3 mg/dl (0.2-1); CALCIUM 8.6 mg/dl (8.5-10); CREATININE 0.8 mg/dl (0.55-1.3); POTASSIUM 5.1 mmol/L (3.5-5.1)
[2019-03-05] MEDS: RAMIPRIL 5 MG CAPSULE (FP) PO SCH (09:06)
[2019-03-05] MEDS: amLODIPine BESYLATE 2.5 MG TABLET (FP) PO SCH (09:07)
[2019-03-05] MEDS: LORATADINE 10 MG TABLET PO SCH (09:12)
[2019-03-05] MEDS: PANTOPRAZOLE 40 MG TABLET (FP) PO SCH (09:12)
[2019-03-05] MEDS: TIOTROPIUM BROMIDE 2.5 MCG (SPIRIVA) RESPIMAT INHALER IH SCH (09:13)
--- NOTE | 2019-03-05 12:25 | PN ---
Physical Exam: SUBJECTIVE: Patient seen and examined at bedside. Pain is 6/10. OBJECTIVE: Vital Signs Period Temp Pulse Resp BP Sys/Barraza Pulse Ox Last 24 Hr 97.7 F-99.1 F 72-83 17-18 127-158/40-54 94-98 GENERAL: Awake, alert, and fully oriented, in no acute distress. LUNGS: Breath sounds equal, clear to auscultation bilaterally. No wheezes, and no crackles. No accessory muscle use. HEART: Regular rate and rhythm, normal S1 and S2 . ABDOMEN: Diffuse lower abdominal tenderness MUSCULOSKELETAL: Normal range of motion at all joints. No bony deformities or tenderness. No CVA tenderness. UPPER EXTREMITIES: 2+ pulses, warm, well-perfused. No cyanosis. No clubbing. No peripheral edema. LOWER EXTREMITIES: 2+ pulses, warm, well-perfused. No calf tenderness. No peripheral edema. NEUROLOGICAL: Cranial nerves II-XII intact. Normal speech. Laboratory Results - last 24 hr 03/04/19 03/05/19 03/05/19 06:45 07:09 07:09 PT with INR 13.1 H INR 1.17 PTT (Actin FS) 29.5 Sodium 133 L Potassium 5.1 Chloride 103 Carbon Dioxide 24 Anion Gap 6 L BUN 10.0 Creatinine 0.8 Est GFR (CKD-EPI)AfAm 78.47 Est GFR (CKD-EPI)NonAf 67.70 Random Glucose 100 Calcium 8.6 Magnesium 2.0 Total Bilirubin 0.3 AST 12 L ALT 10 L Alkaline Phosphatase 83 Total Protein 6.0 L Albumin 2.8 L Carcinoembryonic Ag 2.7 CA 125 Antigen 131.2 H Active Medications Generic Name Dose Route Start Last Admin Trade Name Freq PRN Reason Stop Dose Admin Acetaminophen 1,000 mg 03/04/19 07:39 03/05/19 09:11 Ofirmev Injection - IVPB 1,000 mg Q6H PRN Administration PAIN LEVEL 1-5 Amlodipine Besylate 2.5 mg 03/04/19 10:00 03/05/19 09:07 Norvasc - PO 2.5 mg DAILY MONET Administration Atorvastatin Calcium 20 mg 03/03/19 22:00 03/04/19 21:53 Lipitor - PO 20 mg HS MONET Administration Docusate Sodium 200 mg 03/03/19 22:00 03/04/19 21:53 Colace - PO 200 mg HS MONET Administration Lactated Ringer's 1,000 ml in 1,000 mls @ 75 mls/hr 03/05/19 00:01 03/05/19 00:05 Lactated Ringers Solution IV 75 mls/hr ASDIR MONET Administration Loratadine 10 mg 03/04/19 10:00 03/05/19 09:12 Claritin - PO Not Given DAILY MONET Metoprolol Succinate 50 mg 03/03/19 22:00 03/04/19 21:53 Toprol Xl - PO 50 mg HS MONET Administration Oxycodone HCl 5 mg 03/04/19 07:40 03/04/19 22:56 Roxicodone - PO 5 mg Q6H PRN Administration PAIN LEVEL 6-10 Pantoprazole Sodium 40 mg 03/04/19 10:00 03/05/19 09:12 Protonix - PO Not Given DAILY MONET Ramipril 5 mg 03/04/19 10:00 03/05/19 09:06 Altace - PO 5 mg DAILY MONET Administration Tiotropium [place] 2 puff 03/04/19 10:00 03/05/19 09:13 Spiriva Respimat IH 2 puff DAILY MONET Administration ASSESSMENT/PLAN: 84 year-old female with a complicated medical history significant for HTN, HLD, COPD, PUD, lung cancer s/p DAYSI resection, sigmoid colon adenocarcinoma, very large right ovarian cystadenoma, and a 5cm infrarenal abdominal aortic aneurysm. Admitted for right flank and lower abdominal pain. Right flank and lower abdominal pain Large right ovarian cyst --03/03 CTAP: 18 x 18 x 10cm pelvic mass seen on multiple previous scans since 10/2017 --mass effect on upper 1/3 sigmoid colon and on both ureters, also seen on previous studies --ATTORNEY RECRUITER consult: plan is for laparoscopic removal today, possible oopherectomy Bilateral hydroureteronephrosis --secondary to mass effect of ovarian cyst --renal function is stable --urology following Leukocytosis --completed 5-day course of Macrobid today for presumed UTI started prior to admission; urine culture negative here Lung cancer Sigmoid colon adenocarcinoma --both treated surgically, no chemo, no radiation Infrarenal aortic dilitation with mural thrombus --also seen on previous studies since 10/2017, stable in size Dilated common bile duct --seen on previous studies T12 compression fracture --new, interval development --no bony retropulsion --daughter does not want ortho workup at this time Hypertension --BP stable --continue ramipril, ToprolXL Hyperlipidemia --not on statin therapy COPD --continue Spiriva Peptic ulcer disease --stable FEN Fluids: LR@75mL/hr Electrolytes: replete as indicated Nutrition: NPO DVT prophylaxis: SCDs, oob, ambulation; hold chemical prophylaxis. Dispo: pending transfer to [facility] for OR. Full code. Visit type - Emergency Visit Emergency Visit: Yes ED Registration Date: 03/03/19 Care time: The patient presented to the Emergency Department on the above date and was hospitalized for further evaluation of their emergent condition. - New Patient This patient is new to me today: No - Critical Care Critical Care patient: No
--- NOTE | 2019-03-05 15:35 | PN ---
Progress Note (short form) - Note Progress Note: SPEED BELT SANDER note. Patient was referred to [facility] for drainage of the cyst. They refused to do the procedure. After discusion with Patient's provider and her daughter who is an RN at , decision was made to proceed with laparoscopic drainage. All risks, including almost inevitable spillage, were discussed . Patient and family undersatnd and accept. All other risks and possible complications were explained and accepted as well. Patient is in intense pain and needs some relief. Cleared for the procedure by Ms. Solares and anesthesia as well. All questions answered. For laparoscopy, lavage, drainage of the cyst, possible salpingoophorectomy.
[2019-03-05] MEDS ORDERED: PROPOFOL 20 ML ONE (15:56)
[2019-03-05] MEDS ORDERED: ROCURONIUM BROMIDE 50 MG/5 ML SYRINGE ONE (15:57)
[2019-03-05] MEDS ORDERED: SUCCINYLCHOLINE CHLORIDE 200 MG/10 ML SYRINGE ONE (15:57)
[2019-03-05] MEDS ORDERED: SODIUM CHLORIDE 0.9% P/F 10 ML VIAL IJ ONE (16:00)
[2019-03-05] MEDS ORDERED: DEXAMETHASONE SOD PHOSPHATE 4 MG/1 ML VIAL ONE (16:00)
[2019-03-05] MEDS ORDERED: ceFAZolin SODIUM 1 GM VIAL ONE (16:00)
[2019-03-05] MEDS ORDERED: LIDOCAINE HCL/PF 2% SDV 5ML VIAL ONE (16:00)
[2019-03-05] MEDS ORDERED: KETOROLAC TROMETHAMINE 30 MG/1 ML VIAL ONE (16:00)
[2019-03-05] MEDS ORDERED: ceFAZolin SODIUM 1 GM VIAL IVPB ONE (16:41)
[2019-03-05] MEDS ORDERED: NEOSTIGMINE METHYLSULFATE 0.5 MG/ML - 10 ML MDV ONE (17:22)
[2019-03-05] MEDS ORDERED: GLYCOPYRROLATE 0.2 MG/1 ML VIAL ONE (17:23)
--- NOTE | 2019-03-05 18:00 | OP ---
<Linus Magaña - Last Filed: 03/05/19 17:57> Operative Note - Note: Operative Date: 03/05/19 Pre-Operative Diagnosis: obstructive uropathy secondary to large right ovarian cyst Operation: Laprascopic right ovarian cystectomy & right salpingectomy Findings: Large ovarian cyst/torsion --> drained 1500 mL, right fallopian tube nectrotic Post-Operative Diagnosis: Same as Pre-op Surgeon: Zacarias Smallwood Gate Tender: Linus Magaña Anesthesiologist/AIRPLANE TUBE BUILDER: Kalpesh Galo Anesthesia: General Specimens Removed: Right ovarian cyst and right fallopian tube Estimated Blood Loss (mls): 30 Drains, Volume Out (mls): 150 Fluid Volume Replaced (mls): 450 Operative Report Dictated: Yes <Zacarias Smallwood - Last Filed: 03/05/19 18:15> Operative Note - Note: Estimated Blood Loss (mls): 20
--- NOTE | 2019-03-05 18:01 | SURG ---
Surgery Seo Executive Note Seo Executive: Linus Magaña PA-C Date of Service: 03/05/19 Diagnosis: obstructive uropathy secondary to large right ovarian cyst Procedure: Laprascopic right ovarian cystectomy & right salpingectomy I was present for the entirety of the operative procedure. For further detail, please refer to operative report. Visit type - Case Type Case Type: ED Admission - New patient This patient is new to me today: Yes Date on this admission: 03/05/19
[2019-03-05] MEDS ORDERED: ACETAMINOPHEN 1000 MG/100 ML VIAL (NON FORMULARY) IVPB PRN (18:33)
[2019-03-05] MEDS ORDERED: ATORVASTATIN CA 20 MG TABLET (FP) PO SCH (22:00)
[2019-03-05] MEDS ORDERED: DOCUSATE SODIUM 100 MG CAPSULE (FP) PO SCH (22:00)
[2019-03-06] MEDS: oxyCODONE HCL 5 MG TABLET PO PRN ×2 (00:23→10:15)
[2019-03-06] MEDS ORDERED: ACETAMINOPHEN 325 MG TABLET (FP) PO ONE ×2 (05:55→06:46)
[2019-03-06 08:18] LABS: BASO % 0.2 % (0-2.0); HEMATOCRIT 25.6 % (32.4-45.2); HEMOGLOBIN 8.4 GM/dL (10.7-15.3); LYMPH % 5.6 % (8-40); MCH 30.7 pg (25.7-33.7); MCHC 32.7 g/dl (32.0-36.0); MEAN CELL VOLUME 93.8 fl (80-96); MEAN PLT VOLUME 7.1 fl (7.5-11.1); MONO % 5.6 % (3.8-10.2); NEUT % 88.6 % (42.8-82.8); PLATELET COUNT 399 K/MM3 (134-434); RBC 2.73 M/mm3 (3.60-5.2); RDW 14.2 % (11.6-15.6); WHITE BLOOD COUNT 11.2 K/mm3 (4.0-10.0)
[2019-03-06] MEDS ORDERED: ACETAMINOPHEN 325 MG TABLET (FP) PO PRN (08:45)
[2019-03-06 09:07] LABS: ALBUMIN 2.4 g/dl (3.4-5.0); BILIRUBIN,TOTAL 0.2 mg/dL (0.2-1); BLOOD UREA NITROGEN 13.7 mg/dL (7-18); CALCIUM 8.4 mg/dL (8.5-10.1); CREATININE 0.8 mg/dL (0.55-1.3); MAGNESIUM 1.9 mg/dL (1.8-2.4); POTASSIUM 4.9 mmol/L (3.5-5.1); TOT PROT 5.6 g/dl (6.4-8.2)
[2019-03-06] MEDS ORDERED: PT OWN MED DRAWER 7, Y5N ONE (09:54)
[2019-03-06] MEDS ORDERED: TIOTROPIUM BROMIDE 2.5 MCG (SPIRIVA) RESPIMAT INHALER IH SCH (10:00)
[2019-03-06] MEDS ORDERED: RAMIPRIL 5 MG CAPSULE (FP) PO SCH (10:00)
[2019-03-06] MEDS ORDERED: amLODIPine BESYLATE 2.5 MG TABLET (FP) PO SCH (10:00)
[2019-03-06] MEDS ORDERED: PANTOPRAZOLE 40 MG TABLET (FP) PO SCH (10:00)
[2019-03-06] MEDS ORDERED: LORATADINE 10 MG TABLET PO SCH (10:00)
--- NOTE | 2019-03-06 10:24 | PN ---
Progress Note (short form) - Note Progress Note: POD 1, s/p Laprascopic right ovarian cystectomy & right salpingectomy Pt seen and examined. Reports she is doing well. Has some pain in her RLQ. Was oob to the restroom this AM, no issues. Has not voided yet. Tolerating PO. denies cp/sob, n/v/d. Vital Signs Temp 98.1 F 03/06/19 06:32 Pulse 86 03/06/19 06:32 Resp 20 03/06/19 06:32 BP 135/55 L 03/06/19 06:32 Pulse Ox 99 03/05/19 21:00 Intake & Output 03/05/19 03/05/19 03/06/19 11:59 23:59 11:59 Intake Total 900 1375 800 Output Total 760 Balance 900 615 800 Intake: IV 900 1375 800 LACTATED RINGERS SOLUTION 900 1,000 ml In 1,000 ml @ 75 mls/hr IV ASDIR MONET Rx #:[id number] LACTATED RINGERS SOLUTION 225 800 1,000 ml In 1,000 ml @ 75 mls/hr IV ASDIR MONET Rx #:[id number] Output: Urine 750 Void 150 Estimated Blood Loss 10 Other: Voiding Method Toilet Toilet Toilet # Unmeasured Voids Void 3 1 CBC, BMP 03/06/19 07:35 03/06/19 07:35 Gen: awake, alert, nad Resp: unlabored on RA Abdo: soft, incisions c/d/i, + ttp right lower quadrant, +bowel sounds. A/P: 84 y/o F w/ PMHx HTN, HLD, COPD, PUD, lung CA, colon CA, AAA, and known large right ovarian cyst, now POD 2, s/p Laprascopic right ovarian cystectomy & right salpingectomy. Afebrile, VSS -Pain control -OOB ad gretel -Diet -TOV, if pt voiding may be discharged from surgery standpoint later today d/w attending Dr Smallwood
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
[2019-03-06 14:14] VITALS: BP 129/59; PULSE 79; TEMP 98
--- NOTE | 2019-03-06 15:02 | OP ---
DATE OF OPERATION: DATE OF DICTATION: 03/06/2019 PREOPERATIVE DIAGNOSES: 1. Severe pelvic pain. 2. Very large right ovarian cyst. 3. Multiple medical issues. POSTOPERATIVE DIAGNOSES: 1. Severe pelvic pain. 2. Very large right ovarian cyst. 3. Multiple medical issues. 4. Partial torsion. 5. Pelvic adhesions. OPERATION: 1. Laparoscopy. 2. Drainage of the right ovarian cyst. 3. Resection of the ovarian cyst with salpingectomy and partial oophorectomy. 4. Pelvic lavage. SURGEON: Sirisha Smallwood MD CARROTING MACHINE OFFBEARER: CLARA Connor ANESTHESIA: General. ANESTHESIOLOGIST: KENYA Simon PROCEDURE AND FINDINGS: Under general anesthesia in the dorsal lithotomy position the patient was examined. Tiny uterus enlarged pelvic mass filling the whole hypogastrium were appreciated. The decision was made not to place Hulka or HUMI in the uterus and only a sponge stick in the posterior fornix was used. Abdomen was prepped and draped in the normal fashion. Abdomen was entered through a 5 mm transverse incision in left upper quadrant. The Veress needle was inserted and insufflation was carried out. Using the 5 mm Optic trocar, the abdomen was entered under direct vision. Large single cyst was noted measuring at least 20 cm. There were some mild adhesions between this mass, uterus and surrounding peritoneum. There was no seeding typical for ovarian cancer. There was no ascites. There was torsion of the cyst that was involving the tube and part of the ovary. Uterus and left adnexa were within normal limits. Two additional ports were placed; an 11 mm port on the right side at the level of the umbilicus and a 5 mm on the left side slightly below the level of the umbilicus. The cyst was explored, but it was obvious it needs to be drained in order to have an access to the origin of the mass. Using LigaSure and suction device, the cavity was entered and about 1800 mL of clear light brown fluid was obtained. The cyst collapsed and could be examined. By gently pressure adhesions were released bluntly. The base of the cyst was mobilized and freed. When the cyst was completely free, it was noted at least [id number] times of torsion in the bottom of it. Torsion involved the tube. Most likely the cyst originated from the ovary. Although it was only one chamber cyst without any excrescencies there was some solid part on the posterior aspect. It could be inflammatory. There were no excrescencies, seedings or any other evidence of ovarian cancer. Using the LigaSure, the base of the cyst involving the tube and small part of the ovary were desiccated and divided. Part of it was left in place and, since it looked normal, it was left as it was at that point. Right-sided incision eventually needed to be extended to about 2 cm. The cyst was removed totally in Endo Catch bag. The pelvis was thoroughly lavaged and the fluid was suctioned. Hemostasis was excellent. The procedure was completed. The instruments and ports were removed under direct vision and the gas was allowed to escape from the abdomen. Right-sided incision was closed with 0 Vicryl continuing running suture connecting the edges of the fascia and peritoneum. Skin was approximated with subcuticular 4-0 Biosyn suture, which was also used on the remaining 2 incisions. Sterile dressings were placed. Patient withstood the procedure very well. The catheter was removed. She was extubated, awakened and transferred to PACU stable and comfortable. Total blood loss was less than 20 mL. There was no complication with the operation. SIRISHA SMALLWOOD MD [id number]
--- NOTE | 2019-03-07 10:00 | DS ---
Physical Exam: SUBJECTIVE: Patient seen and examined. Reports she is doing well. Has some pain in her RLQ. Was oob to the restroom this AM, no issues. Has not voided yet. Tolerating PO. denies cp/sob, n/v/d. OBJECTIVE: Vital Signs Period Temp Pulse Resp BP Sys/Barraza Pulse Ox Last 24 Hr 98 F-98.0 F 79-83 20-20 127-129/59-64 PHYSICAL EXAM Gen: awake, alert, nad Resp: unlabored on RA Abdo: soft, incisions c/d/i, + ttp right lower quadrant, +bowel sounds. LABS CBC, BMP 03/06/19 07:35 03/06/19 07:35 HOSPITAL COURSE: 84 y/o F w/ PMHx HTN, HLD, COPD, PUD, lung CA, colon CA, AAA, and known large right ovarian cyst admitted to [facility] with right flank/ lower abdominal pain x [address] scan revealing [id number] cyst with extrinsic compression on ureters. Creatinine was noted to be stable. Patient transferred to [facility] for surgery. S/p Laprascopic right ovarian cystectomy & right salpingectomy. Patient tolerated procedure well with no issues. Diet was advanced the following day. Patient ambulated in the room without difficulty, passed trial of void. Pain was controlled with PO pain meds. All discharge instructions were reviewed with the patient, questions answered. [facility] VASCULAR TECHNICIAN was checked prior to [place]. Plan reviewed with attending who agreed. Date of Admission:03/03/19 Date of Discharge: 03/07/19 Minutes to complete discharge: 20 Discharge Summary Problems reviewed: Yes Reason For Visit: PELVIC CYST-COMPRESSION FX OF T12 VERTEBRA Condition: Stable - Instructions Diet, Activity, Other Instructions: Dr. Smallwood REGISTRATION CLERK discharge instructions Physical activity: Resume your normal everyday activity as tolerated no heavy lifting or exercise until seen by your surgeon. You may walk unlimited amounts and climb stairs. You may resume driving the car when you feel safe and comfortable behind the wheel and are no longer taking narcotic pain medications. Wound care: You have a liquid bandage over your incisions. This will wear off over the next few days/week. If you notice it flaking, please do not pick at it, allow it to come off on its own. When showering allow soap and water to run over the incisions, do not scrub the incisions. Pat dry well after showering. Diet: There are no dietary restrictions. Eat healthy, high-fiber foods. Drink 6 to 8 glasses of liquid each day. This will assist in keeping your bowels are regular. Pain management: You may take Tylenol or acetaminophen or Ibuprofen (for example, Motrin, Advil etc.) every 6 hours as needed for pain. Do not take Acetaminophen (Tylenol) with your narcotic pain medication as it contains Acetaminophen (Tylenol). ISTOP: [phone] Call Dr. Smallwood for any of the following: * Severe pain not relieved by medication * Fever of 101 or higher * Excessive bleeding or drainage on dressing Call the office at [phone] for an appointment in seven to 10 days. Referrals: Bud Angelo MD [Primary Care Provider] - Zacarias Smallwood MD [Staff Physician] - Disposition: HOME - Home Medications Comprehensive Discharge Medication List: Ambulatory Orders Amlodipine Besylate [Norvasc -] 2.5 mg PO DAILY 12/17/11 Cholecalciferol (Vitamin D3) [Vitamin D3] 1,000 unit PO DAILY tablet 10/01/14 Aspirin [Aspirin EC] 81 mg PO MOFR 03/10/16 C,E,Zinc,Copper 24/Om3/Lut/Rosalio [Ocuvite Adult 50 Plus Softgel] 1 each PO DAILY 11/16/17 Metoprolol Tartrate 50 mg PO HS 11/16/17 Docusate Sodium [Colace] 200 mg PO HS 12/11/18 Omeprazole 40 mg PO DAILY 12/11/18 Polyethylene Glycol 3350 [Miralax 119 gm Btl -] 17 gm PO DAILY PRN 12/11/18 Ramipril 5 mg PO DAILY 12/11/18 Simvastatin [Zocor -] 40 mg PO HS 12/11/18 Biotin 1 mg PO DAILY 03/03/19 Cyanocobalamin [Vitamin B12 -] 100 mcg PO DAILY 03/03/19 Loratadine [Claritin] 10 mg PO DAILY 03/03/19 Nitrofurantoin Macrocrystal [Macrodantin] 100 mg PO DAILY 03/03/19 Oxycodone HCl/Acetaminophen [Percocet 5-325 mg Tablet] 1 tab PO Q6H PRN 5 Days # 12 tablet MDD 4 03/06/19 This patient is new to me today: Yes Date on this admission: 03/07/19 Emergency Visit: Yes ED Registration Date: 03/03/19 Care time: The patient presented to the Emergency Department on the above date and was hospitalized for further evaluation of their emergent condition. Critical Care patient: No - Discharge Referral Referred to [facility] No
--- NOTE | 2019-03-10 16:04 | PATH ---
Surgical Pathology Report Patient Name: RENZO HENAO Med. Rec. #: [id number] /Age/Gender: 1935 (Age: 84) / F Account: [id number] Location: [facility] MED/SURG Taken: 03/05/2019 Received: 03/06/2019 Reported: 03/10/2019 Physicians: Michael Villaseñor M.D. Specimen(s) Received OVARIAN CYST, FALLOPIAN TUBE, PORTION OF OVARY, RIGHT Clinical History Right ovarian cyst Final Diagnosis OVARIAN CYST, FALLOPIAN TUBE, PORTION OF OVARY, RIGHT, LAPAROSCOPIC OVARIAN CYSTECTOMY, REMOVAL PORTION OF OVARY, AND SALPINGECTOMY: SEROUS CYSTADENOMA ASSOCIATED WITH OVARIAN/ADNEXAL TORSION. TUBO-OVARIAN ADHESIONS. SEE COMMENT. Comment: The serous cystadenoma is associated with a portion of ovary and fallopian tube with marked vascular congestion, edema, and hemorrhage consistent with ovarian/adnexal torsion. See concurrent cytology ([id number]). Electronically Signed Maricel Blum M.D. Gross Description Received in formalin labeled "right fallopian tube, right ovarian cyst, portion of right ovary," is a 17.5 x 11.5 x 2.5 cm previously opened cyst with an attached fimbriated portion of fallopian tube. The outer surface of the cyst is cruz purple and smooth. The inner lining is markedly hemorrhagic. No normal ovarian parenchyma is identified. No excrescences are identified. The outer surface of the fallopian tube is ovalle purple with tubal ovarian adhesions. Sectioning reveals an unremarkable fallopian tube lumen. Counter Stacker sections are submitted in 10 cassettes as follows: 1-fallopian tube fimbria; 2-cross sections of fallopian tube; 3-10-cyst. /03/06/2019 [facility]03/06/2019
--- NOTE | 2019-03-10 17:46 | PATH ---
Cytology Non-Gynecological Report Patient Name: RENZO HENAO Med. Rec. #: [id number] /Age/Gender: 1935 (Age: 84) / F Account: [id number] Location: [facility] MED/SURG Taken: 03/05/2019 Received: 03/06/2019 Reported: 03/10/2019 Physicians: Zacarias Smallwood MD Specimen(s) Received RIGHT OVARIAN CYST FLUID Clinical History Right ovarian cyst Final Diagnosis OVARIAN CYST FLUID, RIGHT, FOR CYTOLOGY: SATISFACTORY FOR EVALUATION. NEGATIVE FOR MALIGNANT CELLS. CYSTIC LESION WITH FEW MACROPHAGES. ABUNDANT PROTEINACEOUS MATERIAL/DEBRIS IN A BACKGROUND OF FEW MACROPHAGES INCLUDING RARE HEMOSIDERIN-LADEN MACROPHAGES. Comment: See concurrent material [id number]. Electronically Signed Maricel Blum M.D. Gross Description Approximately 40 cc of brown fluid received fresh. One cytofunnel prepared and Pap stained. One cellblock prepared.
== END 2019-03-06 15:30 | disposition home or self-care (01) | DRG 742 ==
LOC: FER 11:47 → FM/S 17:48 → JSAMEDAYSX 03-05 14:05 → J8W 03-05 19:41
PROVIDERS: ADMIT Specialist; ATTEND Specialist
PROC: 0U904ZZ Drainage of Right Ovary, Percutaneous Endoscopic Approach (ICD-10-PCS; principal; 2019-03-06)
PROC: 0UB04ZZ Excision of Right Ovary, Percutaneous Endoscopic Approach (ICD-10-PCS; 2019-03-06)
PROC: 0UB54ZZ Excision of Right Fallopian Tube, Percutaneous Endoscopic Approach (ICD-10-PCS; 2019-03-06)
PROC: 0JNC3ZZ Release Pelvic Region Subcutaneous Tissue and Fascia, Percutaneous Approach (ICD-10-PCS; 2019-03-06)
PROC: 3E1038Z Irrigation of Skin and Mucous Membranes using Irrigating Substance, Percutaneous Approach (ICD-10-PCS; 2019-03-06)
DX: N83.53 Torsion of ovary, ovarian pedicle and fallopian tube (principal); N13.4 Hydroureter; M48.54XA Collapsed vertebra, not elsewhere classified, thoracic region, initial encounter for fracture; N13.30 Unspecified hydronephrosis; N94.89 Other specified conditions associated with female genital organs and menstrual cycle; J44.9 Chronic obstructive pulmonary disease, unspecified; I10 Essential (primary) hypertension; M70.72 Other bursitis of hip, left hip; I71.4 Abdominal aortic aneurysm, without rupture; D27.0 Benign neoplasm of right ovary; E78.5 Hyperlipidemia, unspecified; K82.8 Other specified diseases of gallbladder; N73.6 Female pelvic peritoneal adhesions (postinfective); D72.829 Elevated white blood cell count, unspecified; Z87.11 Personal history of peptic ulcer disease; Z85.038 Personal history of other malignant neoplasm of large intestine; Z85.118 Personal history of other malignant neoplasm of bronchus and lung; Z89.421 Acquired absence of other right toe(s)
CPT/HCPCS: 36415; 71045-TC-FY; 74177-TC; 80053; 81003; 82378; 82550; 83605; 83690; 83735; 84100; 84484; 85025; 85610; 85730; 86304; 86850; 86900; 86901; 87040; 87077; 87086; 88108; 88305-TC; 88307-TC; 93005; 94010; 94760; 97116-GP; 97161-GP; 99285-25; J0131; J7030; Q9967

== ENCOUNTER 2021-02-21 22:46 | Emergency (ER) | payer OTHER, BC ==
[2021-02-21 22:55] VITALS: BP 139/82; PULSE 80; TEMP 98.4; BMI 22.3
== END 2021-02-21 23:07 | disposition home or self-care (01) ==
LOC: FER 22:46
DX: J04.0 Acute laryngitis (principal)
CPT/HCPCS: 99281-25

== ENCOUNTER 2023-02-07 10:31 | Emergency (ER) | payer OTHER, BC ==
[2023-02-07] MEDS ORDERED: ACETAMINOPHEN 1000 MG/100 ML BAG IVPB ONE (10:52)
[2023-02-07] MEDS ORDERED: LIDOCAINE 5% TOPICAL PATCH TP ONE (10:52)
[2023-02-07] MEDS ORDERED: ACETAMINOPHEN 500 MG TABLET (FP) PO ONE (10:56)
[2023-02-07] MEDS ORDERED: LIDOCAINE 5% TOPICAL PATCH ONE (11:21)
[2023-02-07 11:45] LABS: HEMOGLOBIN 10.6 G/dL (10.7-15.3); MCH 31.7 pg (25.7-33.7); MEAN CELL VOLUME 99.2 fl (80-96); MEAN PLT VOLUME 7.8 fl (7.5-11.1); PLATELET COUNT 317.9 10^3/uL (134-434); RBC 3.33 10^6/uL (3.60-5.2); RDW 13.9 % (11.6-15.6)
[2023-02-07 11:57] LABS: BILIRUBIN,TOTAL 0.3 mg/dl (0.2-1); CALCIUM 9.1 mg/dl (8.5-10.1); CREATININE 1.2 mg/dl (0.6-1.3); POTASSIUM 4.5 mmol/L (3.5-5.1); TOT PROT 6.6 g/dl (6.4-8.2)
[2023-02-07 12:42] LABS: PLATELET ESTIMATE ADEQUATE
[2023-02-07 12:43] LABS: EPITHELIAL CELLS 0-5 /hpf
[2023-02-07] MEDS ORDERED: oxyCODONE HCL 10 MG SUSTAINED ACTING TABLET PO ONE (13:11)
[2023-02-07 13:15] VITALS: BP 183/80; PULSE 69; RESP 16; TEMP 98.3; BMI 22.3
[2023-02-07] MEDS ORDERED: LIDOCAINE PATCH REMOVAL MC ONE (22:00)
== END 2023-02-07 14:20 | disposition home or self-care (01) ==
LOC: FER 10:31
DX: M54.50 Low back pain, unspecified (principal); N39.0 Urinary tract infection, site not specified; S32.010A Wedge compression fracture of first lumbar vertebra, initial encounter for closed fracture; I71.40 Abdominal aortic aneurysm, without rupture, unspecified; W01.0XXA Fall on same level from slipping, tripping and stumbling without subsequent striking against object, initial encounter
CPT/HCPCS: 36415; 70450-TC; 71046-TC-FY; 71275-TC; 72100-TC-FY; 73521-TC-FY; 74174-TC; 80053; 81003; 81015; 85027; 87086; 87186; 99285-25; Q9967